=== PATIENT | male | born 1950 | race Caucasian/White ===

== ENCOUNTER 2025-08-09 11:44 | Inpatient (IN) | payer OTHER, SELFPAY ==
[2025-08-09 13:14] VITALS: BP 110/71; PULSE 81; RESP 18; TEMP 36.9; O2SAT 97
--- NOTE | 2025-08-09 13:31 | EDNOTE_ITS ---
ED Recheck Abnl Lab Rx-RME/HPI General Chief Complaint: Recheck/Abnormal Lab/Rx Stated Complaint: SENT BY [facility] FOR IRON INFUSION Time Seen by Provider: 08/09/25 11:48 Arrival date/time: 08/09/25 11:44 75-year-old male patient with significant history of anemia in the past, came in after patient was advised to go to the emergency room for a hemoglobin of 6.0. Patient went to [facility] for routine blood work, and later on yesterday was advised to go to emergency room right away for possible blood wilder sfusion. Patient is denying any blood in the stool or vomiting blood. Patient complaint includes easy fatigability, generalized weakness, dizziness with exertion. Denies any chest pain denies any abdominal pain currently not on any medication for anemia. Related Data Home Medications ?Medication ?Instructions ?Recorded ?Confirmed hydrocodone 10 mg-acetaminophen 10 tab PO Q6HR PRN Bubba n 05/06/24 05/06/24 325 mg tablet trazodone 50 mg tablet 150 mg PO HS sleep 05/06/24 05/06/24 triamterene 50 mg capsule 75 mg PO QDAY BLOOD PRESSURE 05/06/24 05/06/24 venlafaxine 75 mg tablet 75 mg PO QDAY 05/06/2405/06 Previous Rx's ?Medication ?Instructions ?Recorded ferrous sulfate 325 mg (65 mg 325 mg PO QDAY 30 days # 30 tabs 05/08/24 iron) tablet,delayed release Allergies Allergy/AdvReac Type Severity Reaction Status Date / Time Penicillins Allergy Intermediate Rash Verified 08/09/25 11:46 Review of Systems Review of Systems Narrative Review of Systems: Review of system reviewed and within normal limits except mentioned in HPI ED Exam Narrative Physical exam: VITAL SIGNS: Reviewed. GENERAL APPEARANCE: Alert and interactive, follows commands, no acute distress, HEAD AND FACE: Non-traumatic. ENT: PERRL, pale conjunctiva, eyelid no trauma, Mucous membrane moist. NECK: Supple, nontender, no nuchal rigidity. CHEST: No tenderness, no crepitus, no paradoxical movement, no retractions. LUNGS: Clear, well ventilated, symmetric, no rales, no wheezing, no ronchi, no stridor, good breath sounds bilaterally. HEART: Regular rate, regular rhythm, no murmur, no gallops. ABDOMEN: Soft, positive bowel sounds, nondistended, no guarding, nontender, no rebound, no masses, RECTAL: Deferred. GENITAL: Deferred. NEUROLOGICAL: Gross motor function intact sensory function intact, Appropriate for age. MUSCULOSKELETAL: low back nontender, full range of motion. EXTREMITIES: Nontender, full range of motion. SKIN: Color pale, dry, no rash, no lacerations, no abrasions, no contusions. LYMPHATICS: Deferred. Course Quality Measures none Orders Category Date Time Status Admit to Inpatient Status Routine Admission 08/09/25 22:10 Active Patient Condition Routine Admission 08/09/25 22:10 Ordered COVID-19 Screening Questionnaire NOW Care 08/09/25 21:14 Active COVID-19 Screening Questionnaire NOW Care 08/09/25 21:32 Completed Authorizer Q4H START 00 Care 08/09/25 21:26 Active Decision to Admit X1 Care 08/09/25 21:32 Active EKG (ED ONLY) *Do not use* NOW Care 08/09/25 22:06 Active IV [Insert IV] NOW Care 08/09/25 20:41 Active NPO NOW Care 08/09/25 22:12 Active Notify provider NEEDED Care 08/09/25 22:10 Active Occult Blood,Stool (Nursing) ONCE Care 08/09/25 13:31 Active Occult Blood,Stool (Nursing) ONCE Care 08/09/25 21:13 Active Post Transfusion H&H X1 Care 08/09/25 22:01 Active Sequential Compression Device QSHIFT Care 08/09/25 22:10 Active Transfuse,blood/blood products ONCE Care 08/09/25 13:31 Active Consult to Gastroenterology Stat Cons 08/09/25 21:09 Ordered Diet NPO (NOW) Diet 08/09/25 22:12 Active EKG (ED Only) Stat Exams 08/09/25 22:05 Draft CBC AM DRAW Lab 08/10/25 05:00 Ordered CBC AM DRAW Lab 08/11/25 05:00 Ordered CBC AM DRAW Lab 08/12/25 05:00 Ordered CBC AM DRAW Lab 08/13/25 05:00 Ordered CBC AM DRAW Lab 08/14/25 05:00 Ordered CBC Stat Lab 08/09/25 13:53 Completed Cocci Serology IgM with reflex to IgG [Cocci Serology, Lab 08/09/25 21:58 Ordered Unk History] Stat Comprehensive Metabolic Panel AM DRAW Lab 08/10/25 05:00 Ordered Comprehensive Metabolic Panel AM DRAW Lab 08/11/25 05:00 Ordered Comprehensive Metabolic Panel AM DRAW Lab 08/12/25 05:00 Ordered Comprehensive Metabolic Panel AM DRAW Lab 08/13/25 05:00 Ordered Comprehensive Metabolic Panel AM DRAW Lab 08/14/25 05:00 Ordered Comprehensive Metabolic Panel Stat Lab 08/09/25 13:53 Completed Magnesium AM DRAW Lab 08/10/25 05:00 Ordered Prothrombin Time with INR Stat Lab 08/09/25 14:29 Completed Red Blood Cells Stat Lab 08/09/25 13:53 Results Type and Screen Stat Lab 08/09/25 13:53 Results Urinalysis Stat Lab 08/09/25 13:47 Completed Acetaminophen Tab [Tylenol Tab] Med 08/09/25 22:10 Active 650 mg PO Q6H PRN Pantoprazole Inj [Protonix Inj] Med 08/10/25 09:00 Active 40 mg IVP BID Pantoprazole Inj [Protonix Inj] Med 08/09/25 21:09 Discontinued 80 mg IVP X1 ONE traZODone HCL [Desyrel] Med 08/09/25 22:13 Active 150 mg PO HS PRN Code Status Routine Oth 08/09/25 22:10 Ordered Oxygen Delivery PRN RT 08/09/25 22:10 Active Vital Signs Vital signs: Vital Signs Temperature 98.5 F 08/09/25 13:14 Pulse Rate 81 08/09/25 13:14 Respiratory Rate 18 08/09/25 13:14 Blood Pressure 110/71 08/09/25 13:14 Pulse Oximetry (%) 97 08/09/25 13:14 Oxygen Delivery Method Room Air 08/09/25 13:14 Recheck / Abnormal Lab / Rx MDM Narrative MDM Narrative:: 75-year-old male patient with significant history of anemia in the past, came in after patient was advised to go to the emergency room for a hemoglobin of 6.0. Patient went to [facility] for routine blood work, and later on yesterday was advised to go to emergency room right away for possible blood transfusion. Patient is denying any blood in the stool or vomiting blood. Patient complaint includes easy fatigability, generalized weakness, dizziness with exertion. Denies any chest pain denies any abdominal pain currently not on any medication for anemia. Rectal exam was done by me, and tested positive for occult blood. Patient's hemoglobin today was noted to be 6.2 hematocrit of 23.1. Platelet is normal. CMP came back with BUN of 24, creatinine 1.8 glucose 152 urinalysis no UTI. EKG showed normal sinus rhythm, ventricular rate of 73 bpm, no ST segment elevation depression noted. Patient received 2 units of packed RBC. Patient was also started on IV Protonix. I consulted Dr. Melendez, laborer operator, discussed the case, and will see the patient thank you Dr. Patient data External records reviewed:: None Clinical information provided by:: patient Social determinants that could affect healthcare access:: none Patient has the following chronic illnesses:: Hypertension How is presenting disease/condition affected by chronic disease/condition?: exacerbated by Evaluation data The following diagnostics were reviewed and interpreted by me:: lab results, radiology exam(s) and EKG tracing(s) Lab and/or radiology exams considered but not ordered:: None Interpretation Summary: See above Medications / Prescriptions Medications or Prescriptions considered but not ordered:: None Medication administrations:: Medication Administration History Acetaminophen (Acetaminophen 325 Mg Tablet) 650 mg PO Q6H PRN PRN Reason: Fever >100.4 Stop: 09/08/25 22:09 Pantoprazole Sodium (Pantoprazole Inj 40 Mg Vial) 40 mg IVP BID PATRICIO Stop: 09/09/25 08:59 Trazodone HCl (Trazodone Hcl 50 Mg Tablet) 150 mg PO HS PRN PRN Reason: INSOMNIA Stop: 09/09/25 20:59 Discontinued Medications Pantoprazole Sodium (Pantoprazole Inj 40 Mg Vial) 80 mg IVP X1 ONE Stop: 08/09/25 21:10 Last Admin: 08/09/25 21:16 Dose: 80 mg Documented By: BD See above Consultations Consultation(s) initiated? (list below): No Diagnosis Recheck Differential Diagnosis: other (Upper GI bleed, severe anemia, iron deficiency anemia) Most likely diagnosis given after review of the tests above:: Upper GI bleed, anemia Admission Indicated Admission indicated?: indicated Admission Request Was there a request for admission?: Yes Admission Attestation Admission request attestation: Discussed case with [Dr. Morales] from Hospitalist service regarding admission. Discussed patients ED course, exam findings, labs, and radiology results. The Hospitalist [agrees] to accept the patient for admission. Disposition Plan Disposition Plan: Admit Discharge Plan Plan Patient Disposition: Admit Acute Care w/in Hospital Problem List Clinical Impression: Anemia, Acute upper GI bleed
[2025-08-09 14:03] LABS: Collection Type, Urine Clean Catch
[2025-08-09 14:19] LABS: Basophils # (Auto) 0.1 Thou/mm3 (0.0-0.2); Basophils % (Auto) 1 % (0-2.5); Eosinophils # (Auto) 0.1 Thou/mm3 (0.0-0.5); Eosinophils % (Auto) 1 % (0-10); Hematocrit 23.1 % (41.0-53.0); Immature Granulocytes Auto 0.02 Thou/mm3 (0.00-0.00); Lymphocytes # (Auto) 2.3 Thou/mm3 (1.0-4.8); Lymphocytes % (Auto) 25 % (10-50); Mean Corpuscular HGB Conc 26.8 g/dl (31.0-37.0); Mean Corpuscular Hemoglobin 19.0 pg (25.0-35.0); Mean Corpuscular Volume 71 fL (80-100); Monocytes # (Auto) 1.1 Thou/mm3 (0.0-0.8); Monocytes % (Auto) 12 % (0-12); Neutrophils # (Auto) 5.4 Thou/mm3 (1.8-7.7); Neutrophils % (Auto) 60 % (37-80); Nucleated Red Blood Cell # 0.02 Thou/mm3 (0.00-0.00); Nucleated Red Blood Cell % 0 /100 WBC (0); Platelet Count 210 Thou/mm3 (140-440); RDW Standard Deviation 47.7 fL (35.1-43.9); Red Blood Count 3.26 Miln/mm3 (4.50-5.90); White Blood Count 9.0 Thou/mm3 (3.8-10.6)
[2025-08-09 14:26] LABS: Bilirubin,Urine Negative (Negative); Blood,Urine Negative (Negative); Clarity,Urine Clear (Clear/Hazy); Color,Urine Lt-Yellow (Lt Yel-Yel); Glucose, Urine Negative (Negative); Ketones,Urine Negative (Negative); Leukocyte Esterase,Urine Negative (Negative); Nitrite,Urine Negative (Negative); PH,Urine 5.5 (5.0-7.0); Protein,Urine Trace (Neg - Trace); RBC,Urine 1 /hpf (0-3); Specific Gravity,Urine 1.019 (1.001-1.035); Squamous Epithelial Cell,Urine 1 /hpf (0-5); Urobilinogen,Urine Negative mg/dL (0.0-1.0); WBC,Urine 5 /hpf (0-5)
[2025-08-09 14:29] LABS: Hemoglobin 6.2 g/dL (13.5-16.0)
[2025-08-09 14:31] LABS: Alanine Aminotransferase 11 U/L (10-49); Albumin, Serum 4.0 gm/dL (3.4-4.8); Albumin/Globulin Ratio 1.4 (1.2-2.2); Alkaline Phosphatase 77 U/L (46-116); Anion Gap 12 (7-16); Aspartate Amino Transferase 23 U/L (0-34); BUN/Creatinine Ratio 13 Ratio (12-20); Bilirubin,Total 0.4 mg/dL (0.3-1.2); Blood Urea Nitrogen 24 mg/dL (9-23); Calcium 9.4 mg/dL (8.3-10.6); Calcium (Corrected) 9.4 mg/dL (8.5-10.1); Carbon Dioxide 24.0 mMol/L (20.0-31.0); Chloride 106 mMol/L (98-107); Creatinine (Component) 1.8 mg/dL (0.6-1.3); Globulin 2.8 gm/dL (2.3-3.5); Glucose 152 mg/dL (74-106); Osmolality,Calculated 290 (275-295); Potassium 4.5 mMol/L (3.4-5.1); Sodium 142 mMol/L (136-145); Total Protein 6.8 gm/dL (5.7-8.2); eGFR 39 See Note
[2025-08-09 14:52] LABS: INR 1.0 (0.9-1.3); Prothrombin Time 10.9 Seconds (9.0-12.2)
[2025-08-09 20:31] VITALS: BP 130/86; PULSE 70; RESP 18; TEMP 36.9; O2SAT 99
[2025-08-09 21:06] VITALS: BP 149/63; PULSE 85; RESP 15; TEMP 37.2; O2SAT 100
[2025-08-09 21:25] VITALS: BP 141/69; PULSE 76; RESP 16; TEMP 36.9; O2SAT 100
[2025-08-09 21:27] VITALS: PULSE 78
[2025-08-09 21:40] VITALS: BP 135/87; PULSE 74; RESP 17; TEMP 37.2; O2SAT 100
--- NOTE | 2025-08-09 22:05 | EKG_ITS ---
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1950 Requested By: Jose Juan Pérez Order Number: [id number] Reading MD: Jose Juan Pérez Measurements Intervals Filion Rate: 73 P: 64 MO: 154 QRS: -2 QRSD: 146 T: -28 QT: 408 QTc: 451 Interpretive Statements SINUS RHYTHM WITH OCCASIONAL VENTRICULAR PREMATURE COMPLEXES WITH OCCASIONAL SUPRAVENTRICULAR PREMATURE COMPLEXES RIGHT BUNDLE BRANCH BLOCK [120+ ms QRS DURATION, UPRIGHT V1, 40+ ms S IN I/aVL/V4/V5/V6] MODERATE T-WAVE ABNORMALITY, CONSIDER LATERAL ISCHEMIA [-0.1+ mV T-WAVE IN I/aVL/V5/V6] WARNING: DATA QUALITY MAY AFFECT INTERPRETATION Compared to ECG 05/08/2024 05:31:10 Ventricular premature complex(es) now present T-wave abnormality still present Possible ischemia still present /store/S0/[id number]/ecg/[id number].pdf
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
--- NOTE | 2025-08-09 23:45 | ECHO_ITS ---
Patient Info Name: Alona Gifford Age: 75 years : 1950 Gender: Male Ht: 173 cm Wt: 91 kg BSA: 2.11 m2 BP: 127 / 84 mmHg HR: 99 bpm Exam Date: 08/11/2025 6:46 AM Admit Date: 08/09/2025 Site: [facility] Room Number: [id number] Patient Status: I Technical Quality: Poor Exam Type: CA echo doppler complete Compliance Quality Performance Analyst: Gabrielle Belcher Ordering Physician: Milan Morales Study Info Indications Bilateral lower extremity swelling, last echo was 05/05/2024 - Primary Location: S2SX Left Ventricular Outflow Tract Name Value Normal LVOT 2D LVOT Diameter 1.9 cm LVOT Doppler LVOT Peak Velocity 192 cm/s LVOT Mean Gradient 9 mmHg LVOT VTI 40 cm LVOT VTI/AV VTI Ratio 1.1 LVOT Stroke Volume 113 ml Pulmonic Valve Name Value Normal PV Doppler PV Peak Velocity 143 cm/s Mitral Valve Name Value Normal MV Doppler MV Mean Gradient 1 mmHg MV Decel [place] 216 cm/s2 MV PHT 103 ms MV Area (PHT) 2.1 cm2 4.0-5.0 MV Area (Cont Eq VTI) 2.9 cm2 MV Diastolic Function MV E Peak Velocity 77 cm/s MV A Peak Velocity 98 cm/s MV E/A 0.8 MV Annular TDI MV Septal e' Velocity 7.4 cm/s MV E/e' (Septal) 10.4 MV Lateral e' Velocity 10.1 cm/s MV E/e' (Lateral) 7.6 MV e' Average 8.75 cm/s MV E/e' (Average) 9.0 Tricuspid Valve Name Value Normal TV Regurgitation Doppler TR Peak Velocity 255 cm/s Estimated PAP/RSVP RA Pressure 3 mmHg <=5 PA Systolic Pressure 29 mmHg <36 RV Systolic Pressure 29 mmHg <36 Aortic Valve Name Value Normal AV 2D/MM AV Cusp Sep (MM) 1.2 cm AV Doppler AV Peak Velocity 227 cm/s AV Mean Gradient 10 mmHg AV VTI 37 cm AV Area (Cont Eq VTI) 3.0 cm2 >=3.0 AV Area (Cont Eq Joel) 2.4 cm2 AV DI (Joel) 0.85 AV Regurgitation 2D LVOT Area 2.8 cm2 Ventricles Name Value Normal LV Dimensions 2D/MM IVS Diastolic Thickness (2D) 1.0 cm 0.6-1.0 LVID Diastole (2D) 4.9 cm 4.2-5.8 LVIW Diastolic Thickness (2D) 1.1 cm 0.6-1.0 LVID Systole (2D) 3.0 cm 2.5-4.0 LVOT Diameter 1.9 cm LV Mass (2D Cubed) 188.09 g 88.00-224.00 LV Mass Index (2D Cubed) 89 g/m2 49-115 Relative Wall Thickness (2D) 0.45 <=0.42 IVS/LVIW Diastolic Thickness (2D) 0.91 0.00-1.50 LV Fractional Shortening/Ejection Fraction 2D/MM LV Fractional Shortening (2D) 39 % 25-43 LV EF (2D Teichholz) 69 % Atria Name Value Normal LA Dimensions LA Volume (4C A-L) 53 ml Left Ventricle Left ventricular chamber dimension is normal. Left ventricular systolic function is normal with visually estimated ejection fraction of 60-65%. There is concentric remodeling noted in the left ventricle. Left ventricular segmental wall motion is normal. There is indeterminate diastolic function in the left ventricle. Right Ventricle Right ventricular chamber dimension is mildly enlarged. Right ventricular systolic function is normal. Flattening of the ventricular septum in mid to late systole consistent with right ventricular volume overload. Left Atrium Left atrial chamber dimension is mildly enlarged. Right Atrium Right atrial chamber dimension is normal. Aortic Valve The aortic valve is trileaflet. There is mild aortic valve sclerosis. There is no aortic valve stenosis with a peak velocity of 227 cm/s, mean gradient of 10 mmHg, and aortic valve area of 3.0 cm2. There is no aortic valve regurgitation. Pulmonic Valve The pulmonic valve is normal. There is no pulmonic valve stenosis. There is no pulmonic regurgitation. Mitral Valve The mitral valve has thickened leaflets. There is no mitral valve stenosis. There is trace mitral valve regurgitation. Tricuspid Valve The tricuspid valve leaflets are normal. There is no tricuspid valve stenosis. There is mild tricuspid valve regurgitation. No pulmonary hypertension, estimated pulmonary arterial systolic pressure is 29 mmHg and systemic blood pressure of 127 mmHg in systole. Pericardium/Pleural The pericardium appears normal. There is no pericardial effusion. No pleural effusion visualized. Inferior Vena Cava Normal inferior vena cava with >50% collapse upon inspiration consistent with normal right atrial pressure, 3 mmHg. Aorta The aortic measurements are indexed to age and body surface area. The aortic root at the sinus of Valsalva is not well visualized. The prox ascending aorta is not well visualized. Summary 1. Left ventricle size is normal and systolic function is normal. Estimated ejection fraction is 60-65%. There is indeterminate diastolic function. 2. Right ventricle chamber size is mildly enlarged and systolic function is normal. Estimated RVSP is 29 mmHg. 3. There is mild aortic valve sclerosis with no stenosis and no regurgitation. trace MR and TR. 4. The left atrium is mildly enlarged. The right atrium is normal. 5. Normal IVC with estimated RA pressure 3 mmHg. Report Signatures Finalized by Bentley Oliva on 08/11/2025 12:52 PM
[2025-08-10] VITALS (92 sets, daily range): BP systolic 94–160; BP diastolic 51–102; PULSE 61–180; RESP 12–97; TEMP 36.2–37.2; O2SAT 78–100
--- NOTE | 2025-08-10 00:01 | XR_ITS ---
Examination: CT chest, without intravenous contrast. CT abdomen, without intravenous contrast. CT pelvis, without intravenous contrast. 2-D sagittal and coronal reconstructions. 3-D reconstructions. Date and time of exam: August 10, 2025, 0027, comparison CTA chest 05/05/2024 INDICATIONS: Gastrointestinal bleeding, back pain chest pain abdominal pain today, history pulmonary nodules CTDI vol (mgy) 10.71 DLP (MGycm) 791 Technique: Multiple CT images, 3.0 mm slice thickness, obtained chest, abdomen, pelvis, with the high-resolution 64 slice scanner.. Sagittal and coronal 2-D reconstructions are obtained. 3-D reconstructions Low dose protocols were performed. One or more of the following dose reduction techniques were used; automated exposure control, adjustment of the mA and/or KV according to patient size, use of iterative reconstruction technique. Findings: Fluid distended esophagus No thoracic aortic aneurysm dilatation Main pulmonary artery segment 4.4 cm Heavy calcification left anterior descending coronary artery 23 mm bilobed cavitary lesion right lower lobe Mild pneumonia left base Gastric sutures No visualized liver or splenic lesion Aortic calcification no aneurysmal dilatation No bowel obstruction Colonic diverticulosis No pericolonic inflammatory change Normal seminal vesicles Prostatomegaly transverse dimension 4.2 cm No bladder mass Severe osteopenia with diffuse significant lumbar degenerative disc disease Fat-containing 5 cm abdominal wall hernia defect Small fat-containing inguinal hernias IMPRESSION: Again noted cavitary lesion 23 mm cavitary lesion in the right lung, stable compared to the prior study, highest on the differential list infectious processes including active tuberculosis, pulmonary neoplasm not excluded Mild pneumonia left base Fluid distended esophagus, recommend standard fluoroscopically-guided esophagram follow-up Consider CTA study postcontrast or nuclear medicine gastrointestinal bleeding study follow-up given the clinical diagnosis of gastrointestinal bleeding
[2025-08-10] MEDS: HYDROmorphone INJ 2 MG/ML VIAL 1 MG IVP ×3 (00:15→22:49)
--- NOTE | 2025-08-10 00:29 | XR_ITS ---
Examination: Retroperitoneal ultrasound, complete Technique: Multiple high resolution grayscale images of the retroperitoneum obtained, including kidneys and bladder. Exam date and time: August 10, 2025, 0140 hours INDICATIONS: Acute renal insufficiency on laboratory examination today. FINDINGS: Right kidney 9.6 cm renal cortex 1.3 cm Left kidney 8.4 cm renal cortex 1.3 cm Moderate renal scar formation, no hydronephrosis No bladder mass or bladder calculi, bladder prevoid volume 393 cc Prostate 4.5 x 4.5 x 3.6 cm no prostate nodules IMPRESSION: Small kidneys with bilateral renal cortical thinning Moderate bilateral renal scar formation No hydronephrosis
[2025-08-10] MEDS: RINGERS LACTATED 1000 ML 1,000 ML 100 ML IV (00:45)
[2025-08-10 00:53] LABS: Lactate (Lactic Acid) 1.1 mMol/L (0.4-2.0)
--- NOTE | 2025-08-10 01:38 | PRELIM_ITS ---
CT scan of the chest, abdomen and pelvis without intravenous contrast (axial sections with sagittal and coronal reformats) August 10, 2025 at 0027 hours Clinical History: GI bleed and pulmonary nodules. Comparison: None available at the time of this report. Findings: This noncontrast study is nondiagnostic for evaluation of GI bleed. Right lower lobe lung nodule with cavitation measuring 2.5 cm. Small consolidation in the left lower lobe. There is no pleural effusion or pneumothorax. The aorta is within normal limits for on this noncontrast study. No evidence of mediastinal mass or lymphadenopathy. There is no pericardial effusion. The liver, gallbladder, spleen, pancreas, adrenals and kidneys are unremarkable on this noncontrast study. No evidence of bowel obstruction. No evidence of appendicitis. The urinary bladder is unremarkable. There is no free fluid or free air. Degenerative changes of the imaged portions of the spine. Chronic multilevel disc disease. No acute fractures. Vascular calcifications. Diverticulosis of the colon. Fecal loading. Status post gastric surgery. Patulous esophagus with air-fluid level within. Coronary arteries calcifications. Transverse colon containing anterior abdominal hernia without evidence of inflammation or obstruction. Status post anterior abdominal hernia repair with mesh. Impression: 1. This noncontrast study is nondiagnostic for evaluation of GI bleed. 2. Cavitated lesion in the right lower lobe, consider tuberculosis and cancer in the differential diagnosis. 3. Patulous esophagus with air-fluid level within. Correlation with endoscopy should be considered. 4. Coronary arteries calcifications. If acute myocardial infarction is clinically suspected consider correlation with troponin. 5. Small consolidation in the left lower lobe, scarring versus atelectasis versus small focus of pneumonia. Discussion Details: Results verbally communicated to Yue Nair RN at 04:37 AM ET 08/10/2025. A call back number was provided for a Physician to Physician call communication. Report Electronically Signed By: Omega Greene 08/10/2025 1:38:49 AM [EST]
--- NOTE | 2025-08-10 02:00 | PC.NURSE ---
DR NELSON MADE AWARE OF CT CHEST/ABD/PELVIS WO RESULTS FROM [facility]
[2025-08-10 03:57] LABS: Hematocrit 24.2 % (41.0-53.0)
--- NOTE | 2025-08-10 03:57 | PRELIM_ITS ---
Renal/Retroperitoneal ultrasound with Doppler. August 10, 2025 at 0140 hours Clinical history: Acute kidney injury. Technique: Duplex scan of bilateral kidneys was performed utilizing 2D grayscale imaging. Comparison: CT of August 10, 2025. Findings: Right: The right kidney measures 9.6 cm. There is no hydronephrosis or renal calculus. Parenchymal renal scarring. The corticomedullary differentiation is maintained. Left: The left kidney measures 8.4 cm. Parenchymal renal scarring. There is no hydronephrosis or renal calculus. The corticomedullary differentiation is maintained. The urinary bladder is unremarkable. Enlarged prostate. No abnormalities by Doppler. Impression: 1. Bilateral parenchymal scarring in the kidneys. 2. No hydronephrosis. 3. Enlarged prostate. Report Electronically Signed By: Omega Greene 08/10/2025 3:55:53 AM [EST]
[2025-08-10 04:06] LABS: Hemoglobin 7.0 g/dL (13.5-16.0)
[2025-08-10 04:16] LABS: Alanine Aminotransferase 8 U/L (10-49); Albumin, Serum 3.2 gm/dL (3.4-4.8); Albumin/Globulin Ratio 1.2 (1.2-2.2); Alkaline Phosphatase 68 U/L (46-116); Anion Gap 10 (7-16); Aspartate Amino Transferase 18 U/L (0-34); BUN/Creatinine Ratio 14 Ratio (12-20); Bilirubin,Total 0.8 mg/dL (0.3-1.2); Blood Urea Nitrogen 22 mg/dL (9-23); Calcium 9.0 mg/dL (8.3-10.6); Calcium (Corrected) 9.6 mg/dL (8.5-10.1); Carbon Dioxide 27.5 mMol/L (20.0-31.0); Chloride 108 mMol/L (98-107); Creatinine (Component) 1.6 mg/dL (0.6-1.3); Globulin 2.6 gm/dL (2.3-3.5); Glucose 86 mg/dL (74-106); Magnesium 1.7 mg/dL (1.6-2.6); Osmolality,Calculated 291 (275-295); Potassium 4.0 mMol/L (3.4-5.1); Sodium 145 mMol/L (136-145); Total Protein 5.8 gm/dL (5.7-8.2); eGFR 45 See Note
[2025-08-10 04:21] LABS: Iron 54 mcg/dL (65-175); Percent Iron Saturation 17 % (20-55); Total Iron Binding Capacity 311 mcg/dL (250-425); Unsaturated Iron Binding 257 (225-295)
[2025-08-10] MEDS: FLUCONAZOLE/NS 400 MG IVPB 400 MG/200 ML BAG 100 MG IV (04:21)
[2025-08-10 04:31] LABS: Folate > 24.00 ng/mL (>5.38); Vitamin B12 902 pg/mL (211-911)
[2025-08-10 06:39] LABS: Basophils # (Auto) 0.1 Thou/mm3 (0.0-0.2); Basophils % (Auto) 1 % (0-2.5); Eosinophils # (Auto) 0.4 Thou/mm3 (0.0-0.5); Eosinophils % (Auto) 5 % (0-10); Hematocrit 23.8 % (41.0-53.0); Immature Granulocytes Auto 0.01 Thou/mm3 (0.00-0.00); Lymphocytes # (Auto) 1.8 Thou/mm3 (1.0-4.8); Lymphocytes % (Auto) 28 % (10-50); Mean Corpuscular HGB Conc 29.0 g/dl (31.0-37.0); Mean Corpuscular Hemoglobin 21.4 pg (25.0-35.0); Mean Corpuscular Volume 74 fL (80-100); Monocytes # (Auto) 1.0 Thou/mm3 (0.0-0.8); Monocytes % (Auto) 16 % (0-12); Neutrophils # (Auto) 3.3 Thou/mm3 (1.8-7.7); Neutrophils % (Auto) 50 % (37-80); Nucleated Red Blood Cell # 0.02 Thou/mm3 (0.00-0.00); Nucleated Red Blood Cell % 0 /100 WBC (0); Platelet Count 316 Thou/mm3 (140-440); RDW Standard Deviation 52.8 fL (35.1-43.9); Red Blood Count 3.22 Miln/mm3 (4.50-5.90); White Blood Count 6.6 Thou/mm3 (3.8-10.6)
[2025-08-10 06:40] LABS: Hemoglobin 6.9 g/dL (13.5-16.0)
--- NOTE | 2025-08-10 07:22 | PC.NURSE ---
Upon assumption of care pt resting on stretcher, vss, denies any pain or discomfort. Pt in agreement w/POC.
[2025-08-10 08:36] LABS: OBS Card Expiration Date 0224; OBS Card Lot # 0124; OBS Developer Expiration Date *Enter Exp Date*; OBS Developer Lot # *Enter Lot Nbr*; OBS Performed By DIAZB; OBS QC OK? Yes; Occult Blood, Stool Positive (Negative)
[2025-08-10] MEDS: ACETAMINOPHEN 325 MG TABLET 650 MG PO (09:43)
[2025-08-10] MEDS: FUROSEMIDE INJ 10 MG/ML VIAL 2 ML 40 MG IVP (12:29)
--- NOTE | 2025-08-10 13:37 | ESPR_ITS ---
Documentation for date of: 08/10/25 Subjective Subjective Interval history: Patient seen and examined at bedside this morning. He reports feeling better compared to admission. Denies dizziness, lightheadedness, chest pain, shortness of breath, palpitations, nausea, vomiting, hematemesis, melena, or hematochezia. His only complaint is chronic back pain, which he states has been present for a long time and is unchanged from baseline. He is aware that his hemoglobin remains low this morning and understands the plan for additional blood transfusion today. No other complaints at this time. Exam Vital Signs Temp Pulse Resp BP Pulse Ox O2 Del Method 97.8 F 61 16 142/66 H 100 Room Air 08/10/25 12:17 08/10/25 12:29 08/10/25 12:00 08/10/25 12:08/10/25 12:17 08/10/25 12:00 Narrative Exam General: Patient alert, no acute distress, reports improvement in overall status. Cardiac: Regular rate and rhythm, normal S1, S2, no murmurs. Pulmonary: Clear lungs, wheezing on auscultation. Abdomen: Mild hernia noted, distended, positive bowel sounds, no guarding or rebound tenderness. Extremities: Bilateral 1+ pitting edema, pulses 2+ bilaterally. Skin: Warm, dry, no rashes or ecchymoses. Objective Labs 08/10/25 13:20 08/10/25 03:49 Labs: Laboratory Results - last 24 hr 08/09/25 08/09/25 08/09/25 13:47 13:53 14:29 WBC 9.0 RBC 3.26 L Hgb 6.2 L* Hct 23.1 L MCV 71 L MCH 19.0 L MCHC 26.8 L RDW Std Deviation 47.7 H Plt Count 210 Neut % (Auto) 60 Lymph % (Auto) 25 [place] % (Auto) 12 Eos % (Auto) 1 Baso % (Auto) 1 Neut # (Auto) 5.4 Lymph # (Auto) 2.3 [place] # (Auto) 1.1 H Eos # (Auto) 0.1 Baso # (Auto) 0.1 Immature Gran # (Auto) 0.02 H Absolute Nucleated RBC 0.02 H Immature Gran % 0 Nucleated RBC % 0 PT 10.9 INR 1.0 Sodium 142 Potassium 4.5 Chloride 106 Carbon Dioxide 24.0 Anion Gap 12 BUN 24 H Creatinine 1.8 H Estim Creat Clear Calc Not Performed. eGFR 39 L BUN/Creatinine Ratio 13 Glucose 152 H Calculated Osmolality 290 Lactic Acid Calcium 9.4 Corrected Calcium 9.4 Magnesium Iron TIBC Iron Saturation Unsat Iron Binding Total Bilirubin 0.4 AST 23 ALT 11 Alkaline Phosphatase 77 Total Protein 6.8 Albumin 4.0 Globulin 2.8 Albumin/Globulin Ratio 1.4 Vitamin B12 Folate Ur Collection Type Clean Catch Urine Color Lt-Yellow Urine Clarity Clear Urine pH 5.5 Ur Specific [place] 1.019 Urine Protein Trace Urine Glucose (UA) Negative Urine Ketones Negative Urine Blood Negative Urine Nitrite Negative Urine Bilirubin Negative Urine Urobilinogen (Auto) Negative Ur Leukocyte Esterase Negative Urine RBC 1 Urine WBC 5 Ur Squamous Epith Cells 1 Urine Bacteria None Stool Occult Blood Blood Type O Positive Antibody Screen NEGATIVE Crossmatch See Detail Blood Bank Wristband ID Yes 08/10/25 08/10/25 08/10/25 00:47 03:49 06:20 WBC 6.6 RBC 3.22 L Hgb 7.0 L 6.9 L* Hct 24.2 L 23.8 L MCV 74 L MCH 21.4 L MCHC 29.0 L RDW Std Deviation 52.8 H Plt Count 316 D Neut % (Auto) 50 Lymph % (Auto) 28 [place] % (Auto) 16 H Eos % (Auto) 5 Baso % (Auto) 1 Neut # (Auto) 3.3 Lymph # (Auto) 1.8 [place] # (Auto) 1.0 H Eos # (Auto) 0.4 Baso # (Auto) 0.1 Immature Gran # (Auto) 0.01 H Absolute Nucleated RBC 0.02 H Immature Gran % 0 Nucleated RBC % 0 PT INR Sodium 145 Potassium 4.0 D Chloride 108 H Carbon Dioxide 27.5 Anion Gap 10 BUN 22 Creatinine 1.6 H Estim Creat Clear Calc Not Performed. eGFR 45 L BUN/Creatinine Ratio 14 Glucose 86 D Calculated Osmolality 291 Lactic Acid 1.1 Calcium 9.0 Corrected Calcium 9.6 Magnesium 1.7 Iron 54 L TIBC 311 Iron Saturation 17 L Unsat Iron Binding 257 Total Bilirubin 0.8 AST 18 ALT 8 L Alkaline Phosphatase 68 Total Protein 5.8 Albumin 3.2 L D Globulin 2.6 Albumin/Globulin Ratio 1.2 Vitamin B12 902 Folate > 24.00 Ur Collection Type Urine Color Urine Clarity Urine pH Ur Specific [place] Urine Protein Urine Glucose (UA) Urine Ketones Urine Blood Urine Nitrite Urine Bilirubin Urine Urobilinogen (Auto) Ur Leukocyte Esterase Urine RBC Urine WBC Ur Squamous Epith Cells Urine Bacteria Stool Occult Blood Blood Type Antibody Screen Crossmatch Blood Bank Wristband ID 08/10/25 06:38 WBC RBC Hgb Hct MCV MCH MCHC RDW Std Deviation Plt Count Neut % (Auto) Lymph % (Auto) [place] % (Auto) Eos % (Auto) Baso % (Auto) Neut # (Auto) Lymph # (Auto) [place] # (Auto) Eos # (Auto) Baso # (Auto) Immature Gran # (Auto) Absolute Nucleated RBC Immature Gran % Nucleated RBC % PT INR Sodium Potassium Chloride Carbon Dioxide Anion Gap BUN Creatinine Estim Creat Clear Calc eGFR BUN/Creatinine Ratio Glucose Calculated Osmolality Lactic Acid Calcium Corrected Calcium Magnesium Iron TIBC Iron Saturation Unsat Iron Binding Total Bilirubin AST ALT Alkaline Phosphatase Total Protein Albumin Globulin Albumin/Globulin Ratio Vitamin B12 Folate Ur Collection Type Urine Color Urine Clarity Urine pH Ur Specific [place] Urine Protein Urine Glucose (UA) Urine Ketones Urine Blood Urine Nitrite Urine Bilirubin Urine Urobilinogen (Auto) Ur Leukocyte Esterase Urine RBC Urine WBC Ur Squamous Epith Cells Urine Bacteria Stool Occult Blood Positive A Blood Type Antibody Screen Crossmatch Blood Bank Wristband ID Quality Measures Quality Measures VTE prophylaxis Advance care planning discussed with:: patient Assessment & Plan Assessment Current Active Medications: Generic Name Dose Route Start Last Admin Trade Name Freq PRN Reason Stop Dose Admin Acetaminophen 650 mg 08/10/25 00:03 Acetaminophen 325 Mg Tablet PO 09/08/25 22:09 Q6H PRN Fever >100.4 or Pain Scale 1-3 Hydromorphone HCl 1 mg 08/10/25 06:00 08/10/25 06:22 Hydromorphone Inj 2 Mg/Ml Vial IVP 08/15/25 05:59 1 mg Q6HR PRN Administration PAIN SCALE 4-10(Mod-Sev Fluconazole 400 mg in 200 mls @ 100 mls/hr 08/11/25 09:00 Diflucan/Ns Ivpb IV 08/18/25 08:59 QDAY PATRICIO Ondansetron HCl 4 mg 08/09/25 23:51 Ondansetron Inj 2 Mg/Ml Inj 2 Ml IVP 09/08/25 23:50 Q8HR PRN NAUSEA OR VOMITING Protocol Pantoprazole Sodium 40 mg 08/10/25 09:00 08/10/25 09:24 Pantoprazole Inj 40 Mg Vial IVP 09/09/25 08:59 40 mg BID PATRICIO Administration Trazodone HCl 150 mg 08/09/25 22:13 Trazodone Hcl 50 Mg Tablet PO 09/09/25 20:59 HS PRN INSOMNIA Plan 75-year-old male admitted for severe symptomatic anemia due to suspected upper GI bleed, currently hemodynamically stable but with persistently low hemoglobin requiring ongoing transfusion; FRANKLYN improving; and multiple incidental imaging findings. # Acute Upper GI Bleed Severe anemia with FOBT positive, microcytosis, and reflux symptoms strongly suggests occult upper GI bleeding. Absence of hematemesis or melena does not exclude bleeding. Given history of GERD, prior gastric stapling, and CT findings of abnormal esophagus and gastric thickening Likely differentials include peptic ulcer disease, erosive esophagitis, gastritis, or malignancy. NSAID use appears minimal. Patient remains hemodynamically stable but transfusion-dependent. Plan: * Transfuse 1 unit PRBC today (Hgb 6.9), goal >7 * Follow up on post H&H * Pantoprazole 40 mg IV BID * NPO * Avoid NSAIDs, aspirin, anticoagulation * GI consulted pending recs # Acute on Chronic Microcytic Anemia # Iron Deficiency anemia Chronic iron deficiency (MCV 71, iron sat 17%) worsened by acute blood loss. Normal B12/folate excludes megaloblastic causes. Plan: * Continue transfusions as needed * Hold iron during active bleeding * Resume iron supplementation after hemostasis # Acute Kidney Injury, Improving FRANKLYN likely prerenal from decreased intake, vomiting, and anemia-related hypoperfusion. Improvement in creatinine (1.8 -> 1.6). Renal ultrasound shows chronic parenchymal disease, not obstruction. Plan: * Avoid nephrotoxins * Gentle hydration as tolerated * Daily BMP * Monitor urine output # Possible Congestive Heart Failure # Chronic Lower Extremity Edema Patient on triamterene chronically, raising concern for underlying CHF or volume-related edema. Lower-extremity edema present. Prior EF preserved, but CHF status unclear. Plan: * Lasix x1 given * Echocardiogram ordered * Monitor volume status closely during transfusions # History of Coccidioidomycosis Known prior history of cocci, not on treatment, with persistent cavitary lung lesion. Plan: * Started fluconazole * Cocci serologies pending * Monitor LFTs * Follow-up outpatient unless clinical change # GERD # Abnormal Esophagus distenstion on CT CT showing fluid-distended esophagus suggests possible stricture, dysmotility, or chronic esophagitis, which could also contribute to chronic blood loss and reflux symptoms. Plan: * Continue IV PPI * Likely outpatient unless GI recommends inpatient workup # Chronic Back Pain Longstanding pain without red-flag symptoms. NSAIDs contraindicated given active GI bleed. Plan: * Acetaminophen PRN * Avoid NSAIDs * Opioids only if severe and necessary # Depression / Insomnia Chronic, stable psychiatric conditions without acute decompensation. Plan: * Continue trazodone nightly * Restart venlafaxine once med rec complete Hospital Maintenance: DVT ppx: SCDs only GI ppx: Pantoprazole IV BID Diet: NPO Code status: DNR/DNI Disposition: Telemetry, pending GI intervention and Hgb stabilization ----- Plan discussed with attending physician Dr. Carri Ford MD PGY-1 Internal Medicine Attending Provider Attestation/Addendum I, Ruthann Christina DO, attest that I was physically present for the dyer portions of the service and evaluated the patient with the resident and I reviewed and discussed the case with the resident and agree with the resident's findings and plans of care as documented above Patient seen eval this a.m. Patient states that he has been very fatigued for the past few weeks. He also endorses having coffee-ground emesis at home that prompted him to come to the ED. Patient was noted to have anemia on presentation with hemoglobin of 6.2. Patient has been transfused 2 units PRBCs and hemoglobin increased to 7.0. Patient endorses having acid reflux and has some mild epigastric pain. Patient has had a sleeve gastrectomy in the past for weight loss and states that he has been having GI symptoms since. He has had a colonoscopy recently and was found to have a polyp. He has had endoscopy in the past, but states that it was unremarkable. Denies any history of hiatal hernia. However, upon my review of CT abdomen pelvis. Patient is noted to have a fluid distended esophagus and possible hiatal hernia. This is the likely cause of his acid reflux. He remains NPO at this time due to scheduled EGD. Patient is noted to have a caviatry lesion on chest CT that was previously biopsied and found to have fungal elements and TB ruled out. Patient states he uses triamterene at home due to b/l ankle swelling. Will monitor volume status. Will transfuse another unit of PRBCs due to repeat Hgb of 6.9. Will f/u with post transfusion H/H. Patient noted to have a reducible umbilical hernia. Will continue to trend H/H. No further episodes of hematemesis. Will f/u with EGD results.
[2025-08-10 13:41] LABS: Hematocrit 27.3 % (41.0-53.0)
[2025-08-10 13:52] LABS: Hemoglobin 8.0 g/dL (13.5-16.0)
[2025-08-10 15:42] LABS: Cocci Serology, IgM Negative (Negative)
--- NOTE | 2025-08-10 19:36 | SUR.PHASEI ---
192 patient is sleepy and arousable, breathing unlabored, s/p EGD under IV sedation, report received from Annel HART
--- NOTE | 2025-08-10 20:00 | SUR.PHASEI ---
1958 patient is awake, alert, breathing unlabored, report given to Opal RN, patient transferred back to room 251
[2025-08-11] VITALS (21 sets, daily range): BP systolic 70–127; BP diastolic 44–84; PULSE 64–108; RESP 16–94; TEMP 36.4–37.7; O2SAT 92–97; BMI 34.3
--- NOTE | 2025-08-11 05:35 | EKG_ITS ---
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
[2025-08-11 06:23] LABS: Basophils # (Auto) 0.1 Thou/mm3 (0.0-0.2); Basophils % (Auto) 1 % (0-2.5); Eosinophils # (Auto) 0.2 Thou/mm3 (0.0-0.5); Eosinophils % (Auto) 3 % (0-10); Hematocrit 28.1 % (41.0-53.0); Immature Granulocytes Auto 0.01 Thou/mm3 (0.00-0.00); Lymphocytes # (Auto) 1.8 Thou/mm3 (1.0-4.8); Lymphocytes % (Auto) 28 % (10-50); Mean Corpuscular HGB Conc 29.9 g/dl (31.0-37.0); Mean Corpuscular Hemoglobin 22.2 pg (25.0-35.0); Mean Corpuscular Volume 74 fL (80-100); Monocytes # (Auto) 0.7 Thou/mm3 (0.0-0.8); Monocytes % (Auto) 12 % (0-12); Neutrophils # (Auto) 3.5 Thou/mm3 (1.8-7.7); Neutrophils % (Auto) 56 % (37-80); Nucleated Red Blood Cell # 0.00 Thou/mm3 (0.00-0.00); Nucleated Red Blood Cell % 0 /100 WBC (0); Platelet Count 307 Thou/mm3 (140-440); RDW Standard Deviation 52.6 fL (35.1-43.9); Red Blood Count 3.79 Miln/mm3 (4.50-5.90); White Blood Count 6.3 Thou/mm3 (3.8-10.6)
[2025-08-11 06:32] LABS: Hemoglobin 8.4 g/dL (13.5-16.0)
[2025-08-11] MEDS: HYDROmorphone INJ 2 MG/ML VIAL 1 MG IVP (06:52)
--- NOTE | 2025-08-11 06:57 | XR_ITS ---
EXAMINATION: AP chest single view TECHNIQUE: AP portable upright chest single view Date and time: August 11, 2025, 0845 hours, comparison 05/09/2024 INDICATIONS: Shortness of breath today. FINDINGS: Mild enlargement left ventricle Extensive bilateral lung opacity Significant vascular congestion Severe osteopenia IMPRESSION: Extensive bilateral pneumonia, suspicious for mild associated heart failure
[2025-08-11 06:58] LABS: Alanine Aminotransferase 11 U/L (10-49); Albumin, Serum 3.1 gm/dL (3.4-4.8); Albumin/Globulin Ratio 1.2 (1.2-2.2); Alkaline Phosphatase 69 U/L (46-116); Anion Gap 13 (7-16); Aspartate Amino Transferase 18 U/L (0-34); BUN/Creatinine Ratio 13 Ratio (12-20); Bilirubin,Total 0.6 mg/dL (0.3-1.2); Blood Urea Nitrogen 19 mg/dL (9-23); Calcium 9.0 mg/dL (8.3-10.6); Calcium (Corrected) 9.7 mg/dL (8.5-10.1); Carbon Dioxide 28.3 mMol/L (20.0-31.0); Chloride 106 mMol/L (98-107); Creatinine (Component) 1.5 mg/dL (0.6-1.3); Estimated Creatinine Clearance 43.2 mL/min (>60); Globulin 2.6 gm/dL (2.3-3.5); Glucose 73 mg/dL (74-106); Magnesium 1.6 mg/dL (1.6-2.6); Osmolality,Calculated 293 (275-295); Phosphorous 4.1 mg/dL (2.4-5.1); Potassium 4.5 mMol/L (3.4-5.1); Sodium 147 mMol/L (136-145); Total Protein 5.7 gm/dL (5.7-8.2); eGFR 48 See Note
[2025-08-11] MEDS: FLUCONAZOLE/NS 400 MG IVPB 400 MG/200 ML BAG 100 MG IV (08:13)
[2025-08-11] MEDS: MAGNESIUM OXIDE 400 MG TABLET PO (08:50)
[2025-08-11] MEDS: Magnesium Sulfate 2 GM Ivpb 2 GM/50 ML BAG IV (08:50)
--- NOTE | 2025-08-11 10:12 | ESPR_ITS ---
<Statement entered by Stephen Caballero MD - 08/16/25 08:34> I reviewed above note and agree with findings and plans. I have also personally examined the patient with medicine team and went over assessment and plan with medical team including internet marketing manager and resident physician. <Statement entered by Juno Dodd MD - 08/13/25 12:02> I discussed with and supervised the internet marketing manager physician involved in the care of this patient. Patient assessment and plan was discussed with entire medicine team, including my attending. I agree with the assessment and plan as documented by internet marketing manager doctor. Patient care was discussed with my attending physician Dr. Federico Dodd, PGY-3 Documentation for date of: 08/11/25 Subjective Subjective Interval history: Patient seen and examined this morning. He reports that he woke up feeling short of breath earlier today and was started on supplemental oxygen; symptoms have since improved, and he is currently on 4 L NC saturating at 94%. He denies chest pain, palpitations, dizziness, nausea, vomiting, hematemesis, melena, or hematochezia. He is tolerating liquids without difficulty and denies regurgitation or dysphagia. No abdominal pain. Chronic back pain unchanged. Lower extremity swelling is improved. Denies fever, chills, or cough. He reports a history of gastric stapling approximately 25 years ago in [place]. No new complaints at this time. When rounding again on patient, patient MAP was low so was given 250cc bolus and midodrine 10 mg with improvement. Patient was awake at the time with no symptoms. Though appeared more fatigued than usual. Exam Vital Signs Temp Pulse Resp BP Pulse Ox O2 Del Method O2 Flow Rate 98.1 F 105 H 27 H 110/67 95 Room Air 5 08/11/25 08:05 08/11/25 08:05 08/11/25 08:05 08/11/25 08:05 08/11/25 08:05 08/11/25 04:00 08/11/25 06:24 Narrative Exam General: Patient alert, no acute distress, reports improvement in overall status. Cardiac: Regular rate and rhythm, normal S1, S2, no murmurs. Pulmonary: Clear lungs, wheezing on auscultation. Abdomen: Mild hernia noted, distended, positive bowel sounds, no guarding or rebound tenderness. Extremities: Bilateral 1+ pitting edema, pulses 2+ bilaterally. Skin: Warm, dry, no rashes or ecchymoses. Objective Labs 08/11/25 12:50 08/11/25 04:30 Labs: Laboratory Results - last 24 hr 08/09/25 08/10/25 08/10/25 13:53 06:20 13:20 WBC RBC Hgb 8.0 L Hct 27.3 L MCV MCH MCHC RDW Std Deviation Plt Count Neut % (Auto) Lymph % (Auto) [place] % (Auto) Eos % (Auto) Baso % (Auto) Neut # (Auto) Lymph # (Auto) [place] # (Auto) Eos # (Auto) Baso # (Auto) Immature Gran # (Auto) Absolute Nucleated RBC Immature Gran % Nucleated RBC % Sodium Potassium Chloride Carbon Dioxide Anion Gap BUN Creatinine Estim Creat Clear Calc eGFR BUN/Creatinine Ratio Glucose Calculated Osmolality Calcium Corrected Calcium Phosphorus Magnesium Total Bilirubin AST ALT Alkaline Phosphatase Total Protein Albumin Globulin Albumin/Globulin Ratio Coccidioides IgM Ab Negative Blood Type O Positive Antibody Screen NEGATIVE Crossmatch See Detail Blood Bank Wristband ID Yes 08/11/25 04:30 WBC 6.3 RBC 3.79 L Hgb 8.4 L Hct 28.1 L MCV 74 L MCH 22.2 L MCHC 29.9 L RDW Std Deviation 52.6 H Plt Count 307 Neut % (Auto) 56 Lymph % (Auto) 28 [place] % (Auto) 12 Eos % (Auto) 3 Baso % (Auto) 1 Neut # (Auto) 3.5 Lymph # (Auto) 1.8 [place] # (Auto) 0.7 Eos # (Auto) 0.2 Baso # (Auto) 0.1 Immature Gran # (Auto) 0.01 H Absolute Nucleated RBC 0.00 Immature Gran % 0 Nucleated RBC % 0 Sodium 147 H Potassium 4.5 D Chloride 106 Carbon Dioxide 28.3 Anion Gap 13 BUN 19 Creatinine 1.5 H Estim Creat Clear Calc 43.2 L eGFR 48 L BUN/Creatinine Ratio 13 Glucose 73 L Calculated Osmolality 293 Calcium 9.0 Corrected Calcium 9.7 Phosphorus 4.1 Magnesium 1.6 Total Bilirubin 0.6 AST 18 ALT 11 Alkaline Phosphatase 69 Total Protein 5.7 Albumin 3.1 L Globulin 2.6 Albumin/Globulin Ratio 1.2 Coccidioides IgM Ab Blood Type Antibody Screen Crossmatch Blood Bank Wristband ID Quality Measures Quality Measures VTE prophylaxis Advance care planning discussed with:: patient Assessment & Plan Assessment Current Active Medications: Generic Name Dose Route Start Last Admin Trade Name Freq PRN Reason Stop Dose Admin Acetaminophen 650 mg 08/10/25 00:03 Acetaminophen 325 Mg Tablet PO 09/08/25 22:09 Q6H PRN Fever >100.4 or Pain Scale 1-3 Hydromorphone HCl 1 mg 08/10/25 06:00 08/11/25 06:52 Hydromorphone Inj 2 Mg/Ml Vial IVP 08/15/25 05:59 1 mg Q6HR PRN Administration PAIN SCALE 4-10(Mod-Sev Fluconazole 400 mg in 200 mls @ 100 mls/hr 08/11/25 09:00 08/11/25 08:13 Diflucan/Ns Ivpb IV 08/18/25 08:59 100 mls/hr QDAY PATRICIO Administration Ondansetron HCl 4 mg 08/09/25 23:51 Ondansetron Inj 2 Mg/Ml Inj 2 Ml IVP 09/08/25 23:50 Q8HR PRN NAUSEA OR VOMITING Protocol Pantoprazole Sodium 40 mg 08/10/25 09:00 08/11/25 08:13 Pantoprazole Inj 40 Mg Vial IVP 09/09/25 08:59 40 mg BID PATRICIO Administration Trazodone HCl 150 mg 08/09/25 22:13 08/10/25 22:50 Trazodone Hcl 50 Mg Tablet PO 09/09/25 20:59 150 mg HS PRN Administration INSOMNIA Plan 75-year-old male admitted for severe symptomatic anemia due to suspected upper GI bleed, currently hemodynamically stable but with persistently low hemoglobin requiring ongoing transfusion; FRANKLYN improving; and multiple incidental imaging findings. # Acute Hypoxic Respiratory Failure due # Suspected Aspiration Pneumonia vs TRALI vs TACO New oxygen requirement this morning following recent emesis history and EGD, with CXR showing extensive bilateral infiltrates. Clinical picture concerning for aspiration pneumonia. Differential includes volume overload from transfusions vs aspiration pneumonia; however, given radiographic findings and aspiration risk, empiric antibiotics initiated. Plan: * Start Levofloxacin 750 mg IV daily * Start Metronidazole 500 mg IV q8h * Supplemental O2, wean as tolerated * Monitor respiratory status and oxygen requirements * Trend WBC * Repeat CXR if clinical worsening # Hypotension Transient hypotension with MAP 58 during rounds. Patient was awake and asymptomatic but appeared more fatigued. Likely multifactorial (recent transfusions, infection, relative volume depletion). Lactic acid 2.1. Plan: * Gave 250 cc IV fluid bolus with improvement * Administered midodrine 10 mg PO x1 * Continue close BP monitoring * Maintain MAP >65 * Avoid aggressive fluids * Reassess need for for more midodrine if recurrent hypotension # Acute Upper GI Bleed Severe anemia with FOBT positive, microcytosis, and reflux symptoms strongly suggests occult upper GI bleeding. Absence of hematemesis or melena does not exclude bleeding. Given history of GERD, prior gastric stapling, and CT findings of abnormal esophagus and gastric thickening Likely differentials include peptic ulcer disease, erosive esophagitis, gastritis, or malignancy. NSAID use appears minimal. Patient remains hemodynamically stable but transfusion-dependent. EGD on 08/10 showed esophageal ulcers and gastritis, likely source of bleeding. No further hematemesis or melena. Hgb 8.7 this morning stable, no transfusions today. Plan: * Trend CBC daily * Continue pantoprazole IV BID * Avoid NSAIDs, aspirin, anticoagulation * Await biopsy results * Discuss with GI regarding diet advancement and next steps # Post-Bariatric Stricture with Functional Obstruction EGD demonstrated stricture at prior bariatric surgery site with fluid backflow into esophagus. Plan: * Continue liquids as tolerated * Per GI, Gastrografin upper GI series tomorrow * Will likely require [place] bariatric surgery referral for definitive management # Acute on Chronic Microcytic Anemia # Iron Deficiency anemia Chronic iron deficiency (MCV 71, iron sat 17%) worsened by acute blood loss. Normal B12/folate excludes megaloblastic causes. Now improved after 3 units PRBC. Plan: * Continue transfusions as needed * Resume iron supplementation once cleared by GI * Transfuse only if Hgb <7 or symptomatic # Acute Kidney Injury, Improving FRANKLYN likely prerenal from decreased intake, vomiting, and anemia-related hypoperfusion. Improvement in creatinine (1.8 -> 1.6 -> 1.5). Renal ultrasound shows chronic parenchymal disease, not obstruction. Plan: * Avoid nephrotoxins * Gentle hydration as tolerated * Daily BMP * Monitor urine output # Possible Congestive Heart Failure # Chronic Lower Extremity Edema Patient on triamterene chronically, raising concern for underlying CHF or volume-related edema. Lower-extremity edema present. Prior EF preserved, but CHF status unclear. Plan: * Lasix x1 given * Echocardiogram ordered * Monitor volume status closely during transfusions # History of Coccidioidomycosis Known prior history of cocci, not on treatment, with persistent cavitary lung lesion. Plan: * Continue fluconazole * Cocci serologies pending * Monitor LFTs * Follow-up outpatient unless clinical change # GERD # Abnormal Esophagus distenstion on CT CT showing fluid-distended esophagus suggests possible stricture, dysmotility, or chronic esophagitis, which could also contribute to chronic blood loss and reflux symptoms. Plan: * Continue IV PPI * Likely outpatient unless GI recommends inpatient workup # Chronic Back Pain Longstanding pain without red-flag symptoms. NSAIDs contraindicated given active GI bleed. Plan: * Acetaminophen PRN * Avoid NSAIDs * Opioids only if severe and necessary # Depression / Insomnia Chronic, stable psychiatric conditions without acute decompensation. Plan: * Continue trazodone nightly * Restart venlafaxine once med rec complete Hospital Maintenance: DVT ppx: SCDs only GI ppx: Pantoprazole IV BID Diet: Clear liquid diet Code status: DNR/DNI Disposition: Telemetry. ----- Plan discussed with attending physician Dr. Caballero and senior resident Dr. Ju Ford MD PGY-1 Internal Medicine
--- NOTE | 2025-08-11 10:50 | PC.SS ---
75YO White male; reason for visit: GI BLEED. SS met with patient at bedside to complete initial assessment. Role and purpose of today?s contact explained to patient. Patient confirmed his demographic information. He stated his primary medical surrogate decisionmaker is his ex-spouse Grace Peter [phone]. Patient reported he lives alone in a home. Patient stated he is independent with ADL completion and utilizes a cane to assist with ambulation. PCP: Dr. Addison-[facility], last appt. 08/08/25. PHARMACY: delivered via mail by [facility]. Discharge plan discussed with patient, he is requesting to return home when medically clear. His sibling Dominick Garay to provide transportation. DISCHARGE PLAN: HOME ALT DECISIONMAKER: Ex-Spouse Grace Peter
[2025-08-11] MEDS: SODIUM CHLORIDE 0.9% 250 ML 250 ML 999 ML IV ×2 (11:21→13:01)
[2025-08-11] MEDS: MIDODRINE 5 MG TABLET 10 MG PO ×2 (11:22→21:26)
[2025-08-11 12:03] LABS: Lactate (Lactic Acid) 2.1 mMol/L (0.4-2.0)
[2025-08-11 13:10] LABS: Hematocrit 29.9 % (41.0-53.0)
[2025-08-11 13:31] LABS: Hemoglobin 8.7 g/dL (13.5-16.0)
[2025-08-11] MEDS: SODIUM CHLORIDE 0.9% 500 ML 500 ML 999 ML IV (13:43)
[2025-08-11] MEDS: LIDOCAINE 5% 1 PATCH TOP (13:47)
[2025-08-11] MEDS: metroNIDAZOLE/NS 500 MG IVPB 500 MG/100 ML BAG 200 MG IV ×2 (13:49→21:10)
[2025-08-11 14:55] LABS: Reflex Lactate? Y
[2025-08-11 15:58] LABS: Lactic Acid, 3 HR 2.2 mMol/L (0.4-2.0)
--- NOTE | 2025-08-11 17:07 | EKG_ITS ---
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
[2025-08-12] VITALS (14 sets, daily range): BP systolic 92–121; BP diastolic 44–64; PULSE 71–87; RESP 18–93; TEMP 36.9–37.4; O2SAT 91–99; BMI 35.5; BMI 35.4
--- NOTE | 2025-08-12 | XR_ITS ---
EXAMINATION: Upper GI series with KUB Esophagram standard Fluoroscopy 16 spot fluoroscopic films of the stomach Date and time: August 12, 2025, 1121 hours INDICATIONS: Clinical diagnosis gastric outlet obstruction, abdominal pain and distention this week TECHNIQUE AND FINDINGS: Nonobstructive bowel gas pattern Patient swallowed Gastrografin with no primary peristaltic waves, atonic esophagus Continuous gastroesophageal reflux Stomach is fluid-filled and the contrast is diluted in the stomach No contrast passes into the duodenum Fluoroscopy 1.3 minutes radiation dose 124.63 8 mGy IMPRESSION: No contrast passes out of the stomach, additional delayed films will be obtained
--- NOTE | 2025-08-12 | XR_ITS ---
Examination: Abdomen AP single view Technique: AP portable supine abdomen, single view Exam date and time: August 12, 2025, 1357 hours INDICATIONS: 1 hour delayed film. Upper GI series FINDINGS: Contrast has passed from the stomach into small bowel IMPRESSION: Negative for complete gastric outlet obstruction
[2025-08-12] MEDS: HYDROmorphone INJ 2 MG/ML VIAL 1 MG IVP ×3 (00:09→19:46)
[2025-08-12] MEDS: metroNIDAZOLE/NS 500 MG IVPB 500 MG/100 ML BAG 200 MG IV ×3 (04:57→21:29)
[2025-08-12 06:32] LABS: Basophils # (Auto) 0.1 Thou/mm3 (0.0-0.2); Basophils % (Auto) 0 % (0-2.5); Eosinophils # (Auto) 0.0 Thou/mm3 (0.0-0.5); Eosinophils % (Auto) 0 % (0-10); Hematocrit 28.8 % (41.0-53.0); Immature Granulocytes Auto 0.10 Thou/mm3 (0.00-0.00); Lymphocytes # (Auto) 1.8 Thou/mm3 (1.0-4.8); Lymphocytes % (Auto) 8 % (10-50); Mean Corpuscular HGB Conc 28.8 g/dl (31.0-37.0); Mean Corpuscular Hemoglobin 22.2 pg (25.0-35.0); Mean Corpuscular Volume 77 fL (80-100); Monocytes # (Auto) 1.4 Thou/mm3 (0.0-0.8); Monocytes % (Auto) 6 % (0-12); Neutrophils # (Auto) 19.8 Thou/mm3 (1.8-7.7); Neutrophils % (Auto) 85 % (37-80); Nucleated Red Blood Cell # 0.00 Thou/mm3 (0.00-0.00); Nucleated Red Blood Cell % 0 /100 WBC (0); Platelet Count 274 Thou/mm3 (140-440); RDW Standard Deviation 56.7 fL (35.1-43.9); Red Blood Count 3.74 Miln/mm3 (4.50-5.90); White Blood Count 23.2 Thou/mm3 (3.8-10.6)
[2025-08-12 06:41] LABS: Hemoglobin 8.3 g/dL (13.5-16.0)
[2025-08-12 06:43] LABS: Alanine Aminotransferase 9 U/L (10-49); Albumin, Serum 3.0 gm/dL (3.4-4.8); Albumin/Globulin Ratio 1.2 (1.2-2.2); Alkaline Phosphatase 66 U/L (46-116); Anion Gap 13 (7-16); Aspartate Amino Transferase 26 U/L (0-34); BUN/Creatinine Ratio 17 Ratio (12-20); Bilirubin,Total 0.5 mg/dL (0.3-1.2); Blood Urea Nitrogen 27 mg/dL (9-23); Calcium 8.9 mg/dL (8.3-10.6); Calcium (Corrected) 9.7 mg/dL (8.5-10.1); Carbon Dioxide 26.2 mMol/L (20.0-31.0); Chloride 108 mMol/L (98-107); Creatinine (Component) 1.6 mg/dL (0.6-1.3); Estimated Creatinine Clearance 41.3 mL/min (>60); Globulin 2.5 gm/dL (2.3-3.5); Glucose 120 mg/dL (74-106); Magnesium 1.7 mg/dL (1.6-2.6); Osmolality,Calculated 298 (275-295); Phosphorous 2.9 mg/dL (2.4-5.1); Potassium 4.9 mMol/L (3.4-5.1); Sodium 147 mMol/L (136-145); Total Protein 5.5 gm/dL (5.7-8.2); eGFR 45 See Note
--- NOTE | 2025-08-12 09:06 | ESPR_ITS ---
<Statement entered by Stephen Caballero MD - 08/16/25 08:34> I reviewed above note and agree with findings and plans. I have also personally examined the patient with medicine team and went over assessment and plan with medical team including recording studio intern and resident physician. <Statement entered by Juno Dodd MD - 08/13/25 12:12> No significant overnight events. Patient on room air today, blood pressure remaining stable. Patient pending upper GI series regarding the GE outlet obstruction. I discussed with and supervised the recording studio intern physician involved in the care of this patient. Patient assessment and plan was discussed with entire medicine team, including my attending. I agree with the assessment and plan as documented by recording studio intern doctor. Patient care was discussed with my attending physician Dr. Federico Dodd, PGY-3 Documentation for date of: 08/12/25 Subjective Subjective Interval history: Patient seen and examined this morning. Blood pressure has been holding with MAP 69. He reports that he feels tired, but denies dizziness, lightheadedness, chest pain, shortness of breath, nausea, vomiting, hematemesis, melena, or hematochezia. He is currently NPO for scheduled Gastrografin upper GI series. He complains of dry mouth;informed nursing to provide mouth swabs. He also reports dysuria starting this morning. Denies fever, chills, flank pain, or abdominal pain. No worsening lower extremity swelling. No new respiratory complaints, currently on room air. Exam Vital Signs Temp Pulse Resp BP Pulse Ox O2 Del Method O2 Flow Rate 99.3 F 77 18 94/57 L 91 L Room Air 3 08/12/25 04:09 08/12/25 07:01 08/12/25 07:01 08/12/25 04:09 08/12/25 04:09 08/11/25 04:00 08/12/25 07:01 Narrative Exam General: Patient alert, no acute distress, reports improvement in overall status. Cardiac: Regular rate and rhythm, normal S1, S2, no murmurs. Pulmonary: Clear lungs, wheezing on auscultation. Abdomen: Mild hernia noted, distended, positive bowel sounds, no guarding or rebound tenderness. Extremities: Bilateral 1+ pitting edema, pulses 2+ bilaterally. Skin: Warm, dry, no rashes or ecchymoses. Objective Labs 08/12/25 08:53 08/12/25 05:23 Labs: Laboratory Results - last 24 hr 08/11/25 08/11/25 08/11/25 11:45 12:50 15:42 WBC RBC Hgb 8.7 L Hct 29.9 L MCV MCH MCHC RDW Std Deviation Plt Count Neut % (Auto) Lymph % (Auto) Fannin % (Auto) Eos % (Auto) Baso % (Auto) Neut # (Auto) Lymph # (Auto) [place]annin # (Auto) Eos # (Auto) Baso # (Auto) Immature Gran # (Auto) Absolute Nucleated RBC Immature Gran % Nucleated RBC % Sodium Potassium Chloride Carbon Dioxide Anion Gap BUN Creatinine Estim Creat Clear Calc eGFR BUN/Creatinine Ratio Glucose Calculated Osmolality Lactic Acid 2.1 H 2.2 H Calcium Corrected Calcium Phosphorus Magnesium Total Bilirubin AST ALT Alkaline Phosphatase Total Protein Albumin Globulin Albumin/Globulin Ratio 08/12/25 05:23 WBC 23.2 H D RBC 3.74 L Hgb 8.3 L Hct 28.8 L MCV 77 L MCH 22.2 L MCHC 28.8 L RDW Std Deviation 56.7 H Plt Count 274 D Neut % (Auto) 85 H Lymph % (Auto) 8 L [place] % (Auto) 6 Eos % (Auto) 0 Baso % (Auto) 0 Neut # (Auto) 19.8 H Lymph # (Auto) 1.8 [place]in # (Auto) 1.4 H Eos # (Auto) 0.0 Baso # (Auto) 0.1 Immature Gran # (Auto) 0.10 H Absolute Nucleated RBC 0.00 Immature Gran % 0 Nucleated RBC % 0 Sodium 147 H Potassium 4.9 Chloride 108 H Carbon Dioxide 26.2 Anion Gap 13 BUN 27 H Creatinine 1.6 H Estim Creat Clear Calc 41.3 L eGFR 45 L BUN/Creatinine Ratio 17 Glucose 120 H D Calculated Osmolality 298 H Lactic Acid Calcium 8.9 Corrected Calcium 9.7 Phosphorus 2.9 Magnesium 1.7 Total Bilirubin 0.5 AST 26 ALT 9 L Alkaline Phosphatase 66 Total Protein 5.5 L Albumin 3.0 L Globulin 2.5 Albumin/Globulin Ratio 1.2 Quality Measures Quality Measures VTE prophylaxis Advance care planning discussed with:: patient Assessment & Plan Assessment Current Active Medications: Generic Name Dose Route Start Last Admin Trade Name Freq PRN Reason Stop Dose Admin Acetaminophen 650 mg 08/10/25 00:03 Acetaminophen 325 Mg Tablet PO 09/08/25 22:09 Q6H PRN Fever >100.4 or Pain Scale 1-3 Hydromorphone HCl 1 mg 08/10/25 06:00 08/12/25 00:09 Hydromorphone Inj 2 Mg/Ml Vial IVP 08/15/25 05:59 1 mg Q6HR PRN Administration PAIN SCALE 4-10(Mod-Sev Fluconazole 400 mg in 200 mls @ 100 mls/hr 08/11/25 09:00 08/11/25 08:13 Diflucan/Ns Ivpb IV 08/18/25 08:59 100 mls/hr QDAY PATRICIO Administration Levofloxacin/Dextrose 750 mg in 150 mls @ 100 mls/hr 08/11/25 10:45 08/11/25 11:21 Levaquin Ivpb IV 08/18/25 10:44 100 mls/hr QDAY PATRICIO Administration Metronidazole 500 mg in 100 mls @ 200 mls/hr 08/11/25 14:00 08/12/25 04:57 Flagyl 500 Mg Iv IV 08/18/25 13:59 200 mls/hr Q8HR PATRICIO Administration Dextrose/Sodium Chloride 1,000 mls @ 125 mls/hr 08/12/25 08:30 D5-Ns IV 09/11/25 08:14 .Q8H PATRICIO Lidocaine 1 patch 08/11/25 13:22 08/11/25 13:47 Lidocaine 5% 1 Patch TOP 09/10/25 13:21 1 patch UD PRN Administration back pain Midodrine 10 mg 08/11/25 21:21 08/11/25 21:26 Midodrine 5 Mg Tablet PO 09/10/25 21:59 10 mg TID PRN Administration If SBP <100 Ondansetron HCl 4 mg 08/09/25 23:51 Ondansetron Inj 2 Mg/Ml Inj 2 Ml IVP 09/08/25 23:50 Q8HR PRN NAUSEA OR VOMITING Protocol Pantoprazole Sodium 40 mg 08/10/25 09:00 08/11/25 21:09 Pantoprazole Inj 40 Mg Vial IVP 09/09/25 08:59 40 mg BID PATRICIO Administration Trazodone HCl 150 mg 08/09/25 22:13 08/10/25 22:50 Trazodone Hcl 50 Mg Tablet PO 09/09/25 20:59 150 mg HS PRN Administration INSOMNIA Plan 75-year-old male admitted for upper GI bleed with severe iron-deficiency anemia, hospital course complicated by acute hypoxic respiratory failure likely secondary to transfusion-associated volume overload, transient hypotension, persistent leukocytosis, and post-bariatric stricture. # Acute Hypoxic Respiratory Failure # Likely TACO/Volume Overload > Aspiration Pneumonia Repeat CXR shows near-complete resolution of bilateral upper-lobe infiltrates within 24 hours. Likely cardiogenic pulmonary edema or TACO rather than infectious pneumonia. Rapid radiographic improvement makes aspiration pneumonia less likely as the primary etiology. Echo shows preserved EF and low RA pressure, suggesting patient is now euvolemic. Plan: * Continue Levofloxacin 750 mg IV daily * Continue Metronidazole 500 mg IV q8h * Reassess need for antibiotics plan to de-escalate if cultures negative and WBC trends down * Supplemental O2, wean as tolerated * Strict I/Os * Monitor respiratory status closely * Repeat CXR only if clinical worsening # Leukocytosis Persistent leukocytosis (WBC 23.2 -> 21.4) with neutrophilic predominance (86%, ANC 18.4). Etiology likely stress/inflammatory response from recent transfusions, hypoxia, GI bleed, and possible aspiration. Infectious source if any is unclear given rapid radiographic improvement, absence of fever, and hemodynamic stability. Plan: * Trend daily CBC * Follow blood and urine cultures * Monitor fever curve * Reassess need for antibiotics plan to de-escalate if cultures negative and WBC trends down # Acute Upper GI Bleed Severe anemia with FOBT positive, microcytosis, and reflux symptoms strongly suggests occult upper GI bleeding. Absence of hematemesis or melena does not exclude bleeding. Given history of GERD, prior gastric stapling, and CT findings of abnormal esophagus and gastric thickening Likely differentials include peptic ulcer disease, erosive esophagitis, gastritis, or malignancy. NSAID use appears minimal. Patient remains hemodynamically stable but transfusion-dependent. EGD on 08/10 showed esophageal ulcers and gastritis, likely source of bleeding. No further hematemesis or melena. Hemoglobin slightly down (8.3 -> 7.8) but without hemodynamic instabilit. Plan: * Trend CBC daily * Continue pantoprazole IV BID * Avoid NSAIDs, aspirin, anticoagulation * Transfuse only if Hgb <7 or symptomatic * Await biopsy results * Discuss with GI regarding diet advancement and next steps # Acute Kidney Injury, Stable / Improving FRANKLYN likely prerenal from decreased intake, vomiting, and anemia-related hypoperfusion. Improvement in creatinine (1.8 -> 1.6 -> 1.5). Renal ultrasound shows chronic parenchymal disease, not obstruction. Likely prerenal. Creatinine stable this morning at 1.6. Plan: * Avoid nephrotoxins * Gentle hydration as tolerated * Daily BMP * Monitor urine output # Hypotension, resolved Patient was awake and asymptomatic but appeared more fatigued. Likely multifactorial (recent transfusions, infection, relative volume depletion). Lactic acid 2.1. Transient hypotension yesterday (MAP 58), improved after fluid bolus and midodrine. MAP stable today. Plan: * Continue BP monitoring * Maintain MAP >65 * Avoid aggressive IV fluids * Consider PRN midodrine if recurrent hypotension # Post-Bariatric Stricture with Functional Obstruction EGD demonstrated stricture at prior bariatric surgery site with fluid backflow into esophagus. Plan: * NPO for Gastrografin upper GI series today * Will likely require [place] bariatric surgery referral for definitive management # Acute on Chronic Microcytic Anemia # Iron Deficiency anemia Chronic iron deficiency (MCV 71, iron sat 17%) worsened by acute blood loss. Normal B12/folate excludes megaloblastic causes. Now improved after 3 units PRBC. Plan: * Continue transfusions as needed * Resume iron supplementation once cleared by GI * Transfuse only if Hgb <7 or symptomatic # Possible Congestive Heart Failure # Chronic Lower Extremity Edema Patient on triamterene chronically, raising concern for underlying CHF or volume-related edema. Echocardiogram shows normal LV size and systolic function (EF 60?65%) arguing against decompensated systolic heart failure or volume overload as the primary cause of hypoxia. Mild left atrial enlargement and indeterminate diastolic function raise the possibility of HFpEF?, but no evidence of elevated filling pressures on echo. Repea CXR shows rapid improvement supports volume overload physiology rather than decompensated CHF. Plan: * No scheduled diuresis at this time * Continue to monitor volume status and oxygen requirements * Continue home triamterene as outpatient if clinically indicated, will reassess prior to DC. * Reassess if hypoxia or edema worsens # Dysuria New urinary symptoms; already on levofloxacin which provides UTI coverage. Plan: * UA and urine culture sent * Adjust antibiotics if culture data warrant # History of Coccidioidomycosis Known prior history of cocci, not on treatment, with persistent cavitary lung lesion. Plan: * Continue fluconazole * Cocci serologies pending * Monitor LFTs * Follow-up outpatient unless clinical change # GERD # Abnormal Esophagus distenstion on CT CT showing fluid-distended esophagus suggests possible stricture, dysmotility, or chronic esophagitis, which could also contribute to chronic blood loss and reflux symptoms. Plan: * Continue IV PPI * Likely outpatient unless GI recommends inpatient workup # Chronic Back Pain Longstanding pain without red-flag symptoms. NSAIDs contraindicated given active GI bleed. Plan: * Acetaminophen PRN * Avoid NSAIDs * Opioids only if severe and necessary # Depression / Insomnia Chronic, stable psychiatric conditions without acute decompensation. Plan: * Continue trazodone nightly * Restart venlafaxine once med rec complete Hospital Maintenance: DVT ppx: SCDs only GI ppx: Pantoprazole IV BID Diet: Clear liquid diet Code status: DNR/DNI Disposition: Telemetry. ----- Plan discussed with attending physician Dr. Caballero and senior resident Dr. Ju Ford MD PGY-1 Internal Medicine
[2025-08-12 09:50] LABS: Basophils # (Auto) 0.1 Thou/mm3 (0.0-0.2); Basophils % (Auto) 0 % (0-2.5); Eosinophils # (Auto) 0.0 Thou/mm3 (0.0-0.5); Eosinophils % (Auto) 0 % (0-10); Hematocrit 26.3 % (41.0-53.0); Immature Granulocytes Auto 0.15 Thou/mm3 (0.00-0.00); Lymphocytes # (Auto) 1.5 Thou/mm3 (1.0-4.8); Lymphocytes % (Auto) 7 % (10-50); Mean Corpuscular HGB Conc 29.7 g/dl (31.0-37.0); Mean Corpuscular Hemoglobin 22.2 pg (25.0-35.0); Mean Corpuscular Volume 75 fL (80-100); Monocytes # (Auto) 1.2 Thou/mm3 (0.0-0.8); Monocytes % (Auto) 6 % (0-12); Neutrophils # (Auto) 18.4 Thou/mm3 (1.8-7.7); Neutrophils % (Auto) 86 % (37-80); Nucleated Red Blood Cell # 0.00 Thou/mm3 (0.00-0.00); Nucleated Red Blood Cell % 0 /100 WBC (0); Platelet Count 242 Thou/mm3 (140-440); RDW Standard Deviation 54.3 fL (35.1-43.9); Red Blood Count 3.52 Miln/mm3 (4.50-5.90); White Blood Count 21.4 Thou/mm3 (3.8-10.6)
[2025-08-12 09:57] LABS: Hemoglobin 7.8 g/dL (13.5-16.0)
[2025-08-12] MEDS: FLUCONAZOLE/NS 400 MG IVPB 400 MG/200 ML BAG 100 MG IV (10:02)
[2025-08-12] MEDS: DEXTROSE 5%-NS 1,000 ML 125 ML IV (10:03)
--- NOTE | 2025-08-12 10:16 | XR_ITS ---
Upright PA chest film on 08/12/2025 at 11:14 a.m. Comparison study 08/11/2025 CLINICAL INDICATION: ICU patient shortness of breath FINDINGS: There is mild there is moderate cardiomegaly unchanged from the previous film yesterday. There is no evidence of pulmonary venous hypertension, there is no pleural effusion on the right. There is blunting of the left lateral costophrenic sulcus which is slightly more prominent than on yesterday's film. Moderately extensive multifocal areas of patchy ill-defined alveolar infiltrates seen over the upper half of both lungs on yesterday's film have returned to normal. The left lower lobe is clear. In the right lower lobe there is some patchy increased density noted. Air bronchograms seen in the medial base of the left lower lobe behind the heart on yesterday's film are no longer present IMPRESSION: 1. Mild there is moderate cardiomegaly unchanged 2 there is slight blunting of the left lateral costophrenic sulcus. It is difficult to tell whether this might be more prominent than on yesterday's film which was taken with a darker film technique. There is the suggestion that it is chronic and may have been present on yesterday's film, as well. 3. Significant, almost complete improvement of the bilateral upper lobe patchy areas of infiltrate/congestion seen on yesterday's film have returned to normal there is quick resolution suggests probable CHF as the etiology. 4. On today's film there is slight increase in patchy density in the basal segments of the right lower lobe. Correlation with clinical findings is recommended air bronchograms in the medial base of the left lower lobe on yesterday's film are no longer seen. There is one very tiny nodular density seen at the medial base of the left lower lobe. 5 hide 2 obtaining follow-up chest x-rays with special attention to this possible nodular density in the base of the left lower lobe, at least in 3 months and then again at 6 months. Although it is felt to be unlikely, at this point I could not exclude the possibility of a very small early developing tumor. 5. There are numerous surgical clips in the left upper abdominal quadrant. Previous surgery in this area might explain the pleurodiaphragmatic adhesions at the left lateral lung base
[2025-08-12 13:16] LABS: Albumin, Serum 3.1 gm/dL (3.4-4.8); Anion Gap 10 (7-16); BUN/Creatinine Ratio 15 Ratio (12-20); Blood Urea Nitrogen 27 mg/dL (9-23); Calcium 9.0 mg/dL (8.3-10.6); Calcium (Corrected) 9.7 mg/dL (8.5-10.1); Carbon Dioxide 26.2 mMol/L (20.0-31.0); Chloride 107 mMol/L (98-107); Creatinine (Component) 1.8 mg/dL (0.6-1.3); Estimated Creatinine Clearance 36.7 mL/min (>60); Glucose 121 mg/dL (74-106); Osmolality,Calculated 291 (275-295); Phosphorous 2.0 mg/dL (2.4-5.1); Potassium 4.4 mMol/L (3.4-5.1); Sodium 143 mMol/L (136-145); eGFR 39 See Note
[2025-08-12 14:10] LABS: Cocci Serology, IgG Negative (Negative)
--- NOTE | 2025-08-12 15:05 | PC.DIETICIAN ---
Nutrition recommendations Low Fiber, Dys Mech Altered. Consider: 1. Liquid multivitamin/minerals. 2. Vitamin B12 1,000 mcg daily. 3. Folate 1mg daily. 4. Vitamin D3 3,000 IU daily
--- NOTE | 2025-08-12 15:16 | PC.RT ---
Educated pt on sputum sample and induction, pt stated he has a productive cough and can produce a sample without induction, sputum sample cup left at bedside.
--- NOTE | 2025-08-12 16:35 | PC.RT ---
sputum sample collected and sent to lab.
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
[2025-08-13] VITALS (14 sets, daily range): BP systolic 104–124; BP diastolic 60–79; PULSE 72–96; RESP 16–34; TEMP 36.4–37; O2SAT 82–99; BMI 35.4
[2025-08-13] MEDS: DEXTROSE 5%-NS 1,000 ML 80 ML IV (01:30)
[2025-08-13 02:02] LABS: Collection Type, Urine Clean Catch
[2025-08-13 02:11] LABS: Bilirubin,Urine Negative (Negative); Blood,Urine Negative (Negative); Clarity,Urine Turbid (Clear/Hazy); Color,Urine Yellow (Lt Yel-Yel); Glucose, Urine Negative (Negative); Ketones,Urine Negative (Negative); Leukocyte Esterase,Urine Positive (Negative); Nitrite,Urine Negative (Negative); PH,Urine 5.0 (5.0-7.0); Protein,Urine Negative (Neg - Trace); RBC,Urine 4 /hpf (0-3); Specific Gravity,Urine 1.021 (1.001-1.035); Squamous Epithelial Cell,Urine 1 /hpf (0-5); Urobilinogen,Urine Negative mg/dL (0.0-1.0); WBC,Urine 15 /hpf (0-5)
[2025-08-13] MEDS: HYDROmorphone INJ 2 MG/ML VIAL 1 MG IVP ×3 (02:45→19:26)
[2025-08-13] MEDS: metroNIDAZOLE/NS 500 MG IVPB 500 MG/100 ML BAG 200 MG IV ×3 (05:47→21:40)
[2025-08-13 06:28] LABS: Basophils # (Auto) 0.0 Thou/mm3 (0.0-0.2); Basophils % (Auto) 0 % (0-2.5); Eosinophils # (Auto) 0.1 Thou/mm3 (0.0-0.5); Eosinophils % (Auto) 1 % (0-10); Hematocrit 24.4 % (41.0-53.0); Immature Granulocytes Auto 0.05 Thou/mm3 (0.00-0.00); Lymphocytes # (Auto) 1.0 Thou/mm3 (1.0-4.8); Lymphocytes % (Auto) 6 % (10-50); Mean Corpuscular HGB Conc 29.5 g/dl (31.0-37.0); Mean Corpuscular Hemoglobin 22.1 pg (25.0-35.0); Mean Corpuscular Volume 75 fL (80-100); Monocytes # (Auto) 1.1 Thou/mm3 (0.0-0.8); Monocytes % (Auto) 7 % (0-12); Neutrophils # (Auto) 14.1 Thou/mm3 (1.8-7.7); Neutrophils % (Auto) 86 % (37-80); Nucleated Red Blood Cell # 0.00 Thou/mm3 (0.00-0.00); Nucleated Red Blood Cell % 0 /100 WBC (0); Platelet Count 237 Thou/mm3 (140-440); RDW Standard Deviation 56.0 fL (35.1-43.9); Red Blood Count 3.26 Miln/mm3 (4.50-5.90); White Blood Count 16.4 Thou/mm3 (3.8-10.6)
[2025-08-13 06:31] LABS: Alanine Aminotransferase 9 U/L (10-49); Albumin, Serum 2.7 gm/dL (3.4-4.8); Albumin/Globulin Ratio 1.2 (1.2-2.2); Alkaline Phosphatase 70 U/L (46-116); Anion Gap 12 (7-16); Aspartate Amino Transferase 17 U/L (0-34); BUN/Creatinine Ratio 17 Ratio (12-20); Bilirubin,Total 0.4 mg/dL (0.3-1.2); Blood Urea Nitrogen 24 mg/dL (9-23); Calcium 8.5 mg/dL (8.3-10.6); Calcium (Corrected) 9.5 mg/dL (8.5-10.1); Carbon Dioxide 26.5 mMol/L (20.0-31.0); Chloride 108 mMol/L (98-107); Creatinine (Component) 1.4 mg/dL (0.6-1.3); Estimated Creatinine Clearance 47.2 mL/min (>60); Globulin 2.3 gm/dL (2.3-3.5); Glucose 106 mg/dL (74-106); Magnesium 1.5 mg/dL (1.6-2.6); Osmolality,Calculated 294 (275-295); Phosphorous 2.5 mg/dL (2.4-5.1); Potassium 3.4 mMol/L (3.4-5.1); Sodium 146 mMol/L (136-145); Total Protein 5.0 gm/dL (5.7-8.2); eGFR 52 See Note
[2025-08-13 07:32] LABS: Hemoglobin 7.2 g/dL (13.5-16.0)
[2025-08-13] MEDS: POTASSIUM CHL 10 mEq IVPB 10 MEQ/100 ML BAG 100 MEQ IV ×2 (08:41→10:04)
[2025-08-13] MEDS: FLUCONAZOLE/NS 400 MG IVPB 400 MG/200 ML BAG 100 MG IV (08:42)
[2025-08-13] MEDS: Magnesium Sulfate 4 GM Ivpb 4 GM/50 ML BAG IV (08:42)
--- NOTE | 2025-08-13 09:31 | PC.CC ---
Addendum entered by Lauren Fox RN 08/13/25 17:49: 1728 initiated referral to [facility] Addendum entered by Lauren Fox RN 08/13/25 17:00: 1645 Called the [facility] and spoke with Gabrielle the research greenhouse supervisor. Gabrielle informed justowriter operator that they do not have any beds and she gave verbal authorization to transfer to another facility since deptartment that gives auth is only there M-F business hours excluding holidays. Addendum entered by Lauren Fox RN 08/13/25 14:44: 1340 Called [facility] and spoke with Isaura the TC nurse to get an update regarding transfer status. Isaura informed justowriter operator that she is not at her desk and would call back. At 1408 received call from Isaura, she informed [facility] operator that they are still holding in their ER and would present the case to their research greenhouse supervisor at 1600 and gave permission for our facility to look elsewhere in the meantime. Addendum entered by Lauren Fox RN 08/13/25 10:55: 1009 called the [facility] and spoke with Isaura, she informed justowriter operator they are holding in their ER and she would review the chart when beds are available. Original Note: Spoke with Dr. [place] regarding reason for transfer, he informed [facility]riter operator [facility] for now, Dr. [place] will update TC when patient decides.
--- NOTE | 2025-08-13 09:52 | EVENTNT_ITS ---
Documentation for date of: 08/13/25 Event Note Event Note: Reason for Note: Request for transfer to [facility] for definitive bariatric surgical management of gastric outlet obstruction. Clinical Summary 75-year-old male with a history of prior bariatric surgery (gastric stapling 25 years ago) admitted for acute upper GI bleed with severe iron-deficiency anemia (initial Hgb 6.2) requiring multiple PRBC transfusions. 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 A subsequent Gastrografin upper GI series confirmed complete gastric outlet obstruction, with no contrast passage from the stomach into the duodenum, despite delayed imaging. GI service assessed the patient and determined that the obstruction is secondary to prior bariatric surgical intervention and cannot be managed endoscopically at this facility. Reason Transfer Is Required * Patient has complete gastric obstruction due to prior bariatric surgery * Definitive management requires bariatric surgical intervention at a tertiary center * Patient [place] insurance, and GI explicitly recommends transfer to [facility] for bariatric surgery evaluation and intervention * Continued inpatient management at current facility is supportive only and does not address the underlying obstruction Current Clinical Status * Hemodynamically stable * On low fiber diet * At high risk for aspiration, aspiration pneumonia, choking, and recurrent bleeding if obstruction remains untreated * Hemoglobin remains low (downtrending to 7.2) but patient is stable after transfusion * No active hematemesis or melena at this time * Respiratory status stable on room air Current Management * IV pantoprazole BID * PRBC transfusions as needed * Aspiration precautions * Ongoing monitoring of CBC and electrolytes Disposition Given confirmed gastric outlet obstruction related to prior bariatric surgery and lack of local surgical capability, transfer to [facility] for bariatric surgery evaluation and management is medically necessary and strongly recommended. ----- Plan discussed with attending physician Dr. Federico Ford MD PGY-1 Internal Medicine
--- NOTE | 2025-08-13 09:52 | PD.RESEVENT ---
Documentation for date of: 08/13/25 Event Note Event Note: Reason for Note: Request for transfer to [place] system for definitive bariatric surgical management of gastric outlet obstruction. Clinical Summary 75-year-old male with a history of prior bariatric surgery (gastric stapling 25 years ago) admitted for acute upper GI bleed with severe iron-deficiency anemia (initial Hgb 6.2) requiring multiple PRBC transfusions. 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 A subsequent Gastrografin upper GI series confirmed complete gastric outlet obstruction, with no contrast passage from the stomach into the duodenum, despite delayed imaging. GI service assessed the patient and determined that the obstruction is secondary to prior bariatric surgical intervention and cannot be managed endoscopically at this facility. Reason Transfer Is Required Patient has complete gastric obstruction due to prior bariatric surgery Definitive management requires bariatric surgical intervention at a tertiary center Patient [place] insurance, and GI explicitly recommends transfer to [facility] for bariatric surgery evaluation and intervention Continued inpatient management at current facility is supportive only and does not address the underlying obstruction Current Clinical Status Hemodynamically stable On low fiber diet At high risk for aspiration, aspiration pneumonia, choking, and recurrent bleeding if obstruction remains untreated Hemoglobin remains low (downtrending to 7.2) but patient is stable after transfusion No active hematemesis or melena at this time Respiratory status stable on room air Current Management IV pantoprazole BID PRBC transfusions as needed Aspiration precautions Ongoing monitoring of CBC and electrolytes Disposition Given confirmed gastric outlet obstruction related to prior bariatric surgery and lack of local surgical capability, transfer to [place] facility for bariatric surgery evaluation and management is medically necessary and strongly recommended. ----- Plan discussed with attending physician Dr. Federico Ford MD PGY-1 Internal Medicine
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
--- NOTE | 2025-08-13 12:06 | ESPR_ITS ---
<Statement entered by Stephen Caballero MD - 08/17/25 12:55> I reviewed above note and agree with findings and plans. I have also personally examined the patient with medicine team and went over assessment and plan with medical team including summer intern and resident physician. <Statement entered by Juno Dodd MD - 08/14/25 10:58> I discussed with and supervised the summer intern physician involved in the care of this patient. Patient assessment and plan was discussed with entire medicine team, including my attending. I agree with the assessment and plan as documented by summer intern doctor. Patient care was discussed with my attending physician Dr. Federico Dodd, PGY-3 Documentation for date of: 08/13/25 Subjective Subjective Interval history: Patient seen and examined this morning. He reports feeling tired but denies dizziness, lightheadedness, chest pain, shortness of breath, nausea, vomiting, hematemesis, melena, or hematochezia. No abdominal pain. No new respiratory complaints. He is currently tolerating low fiber diet. Earlier today, the patient expressed a desire to leave the hospital due to personal obligations. A detailed discussion was held regarding his condition, including confirmed gastric outlet obstruction related to prior bariatric surgery, downtrending hemoglobin, and [facility] The risks of leaving, including aspiration, aspiration pneumonia, choking, recurrent bleeding, and , were explained in detail. The patient verbalized understanding of these risks. On re-discussion later today, the patient changed his mind and agreed to remain hospitalized and [facility] He has no additional complaints at this time. Exam Vital Signs Temp Pulse Resp BP Pulse Ox O2 Del Method O2 Flow Rate 98.4 F 80 28 H 104/63 96 Nasal Cannula 1 08/13/25 04:00 08/13/25 08:00 08/13/25 08:00 08/13/25 08:00 08/13/25 08:00 08/12/25 16:00 08/12/25 16:00 Narrative Exam General: Patient alert, no acute distress, reports improvement in overall status. Cardiac: Regular rate and rhythm, normal S1, S2, no murmurs. Pulmonary: Clear lungs, wheezing on auscultation. Abdomen: Mild hernia noted, distended, positive bowel sounds, no guarding or rebound tenderness. Extremities: Bilateral 1+ pitting edema, pulses 2+ bilaterally. Skin: Warm, dry, no rashes or ecchymoses. Objective Labs 08/13/25 04:50 08/13/25 04:50 Labs: Laboratory Results - last 24 hr 08/09/25 08/10/25 08/12/25 13:53 06:20 12:44 WBC RBC Hgb Hct MCV MCH MCHC RDW Std Deviation Plt Count Neut % (Auto) Lymph % (Auto) [place] % (Auto) Eos % (Auto) Baso % (Auto) Neut # (Auto) Lymph # (Auto) [place] # (Auto) Eos # (Auto) Baso # (Auto) Immature Gran # (Auto) Absolute Nucleated RBC Immature Gran % Nucleated RBC % Sodium 143 Potassium 4.4 D Chloride 107 Carbon Dioxide 26.2 Anion Gap 10 BUN 27 H Creatinine 1.8 H Estim Creat Clear Calc 36.7 L eGFR 39 L BUN/Creatinine Ratio 15 Glucose 121 H Calculated Osmolality 291 Calcium 9.0 Corrected Calcium 9.7 Phosphorus 2.0 L Magnesium Total Bilirubin AST ALT Alkaline Phosphatase Total Protein Albumin 3.1 L Globulin Albumin/Globulin Ratio Ur Collection Type Urine Color Urine Clarity Urine pH Ur Specific [place] Urine Protein Urine Glucose (UA) Urine Ketones Urine Blood Urine Nitrite Urine Bilirubin Urine Urobilinogen (Auto) Ur Leukocyte Esterase Urine RBC Urine WBC Ur Squamous Epith Cells Urine Bacteria Coccidioides IgG Ab Negative Blood Type Antibody Screen Crossmatch See Detail Blood Bank Wristband ID 08/13/25 08/13/25 08/13/25 00:25 04:50 08:04 WBC 16.4 H D RBC 3.26 L Hgb 7.2 L Hct 24.4 L MCV 75 L MCH 22.1 L MCHC 29.5 L RDW Std Deviation 56.0 H Plt Count 237 Neut % (Auto) 86 H Lymph % (Auto) 6 L [place] % (Auto) 7 Eos % (Auto) 1 Baso % (Auto) 0 Neut # (Auto) 14.1 H Lymph # (Auto) 1.0 [place] # (Auto) 1.1 H Eos # (Auto) 0.1 Baso # (Auto) 0.0 Immature Gran # (Auto) 0.05 H Absolute Nucleated RBC 0.00 Immature Gran % 0 Nucleated RBC % 0 Sodium 146 H Potassium 3.4 D Chloride 108 H Carbon Dioxide 26.5 Anion Gap 12 BUN 24 H Creatinine 1.4 H Estim Creat Clear Calc 47.2 L eGFR 52 L BUN/Creatinine Ratio 17 Glucose 106 Calculated Osmolality 294 Calcium 8.5 Corrected Calcium 9.5 Phosphorus 2.5 Magnesium 1.5 L Total Bilirubin 0.4 AST 17 ALT 9 L Alkaline Phosphatase 70 Total Protein 5.0 L Albumin 2.7 L Globulin 2.3 Albumin/Globulin Ratio 1.2 Ur Collection Type Clean Catch Urine Color Yellow Urine Clarity Turbid A Urine pH 5.0 Ur Specific [place] 1.021 Urine Protein Negative Urine Glucose (UA) Negative Urine Ketones Negative Urine Blood Negative Urine Nitrite Negative Urine Bilirubin Negative Urine Urobilinogen (Auto) Negative Ur Leukocyte Esterase Positive Urine RBC 4 H Urine WBC 15 H Ur Squamous Epith Cells 1 Urine Bacteria None Coccidioides IgG Ab Blood Type O Positive Antibody Screen NEGATIVE Crossmatch See Detail Blood Bank Wristband ID Yes Quality Measures Quality Measures VTE prophylaxis Advance care planning discussed with:: patient Assessment & Plan Assessment Current Active Medications: Generic Name Dose Route Start Last Admin Trade Name Freq PRN Reason Stop Dose Admin Acetaminophen 650 mg 08/10/25 00:03 Acetaminophen 325 Mg Tablet PO 09/08/25 22:09 Q6H PRN Fever >100.4 or Pain Scale 1-3 Hydromorphone HCl 1 mg 08/10/25 06:00 08/13/25 02:45 Hydromorphone Inj 2 Mg/Ml Vial IVP 08/15/25 05:59 1 mg Q6HR PRN Administration PAIN SCALE 4-10(Mod-Sev Fluconazole 400 mg in 200 mls @ 100 mls/hr 08/11/25 09:00 08/13/25 08:42 Diflucan/Ns Ivpb IV 08/18/25 08:59 100 mls/hr QDAY PATRICIO Administration Levofloxacin/Dextrose 750 mg in 150 mls @ 100 mls/hr 08/11/25 10:45 08/13/25 08:41 Levaquin Ivpb IV 08/18/25 10:44 100 mls/hr QDAY PATRICIO Administration Metronidazole 500 mg in 100 mls @ 200 mls/hr 08/11/25 14:00 08/13/25 05:47 Flagyl 500 Mg Iv IV 08/18/25 13:59 200 mls/hr Q8HR PATRICIO Administration Lidocaine 1 patch 08/11/25 13:22 08/11/25 13:47 Lidocaine 5% 1 Patch TOP 09/10/25 13:21 1 patch UD PRN Administration back pain Midodrine 10 mg 08/12/25 12:57 Midodrine 5 Mg Tablet PO 09/10/25 21:20 Q8H PRN If SBP <100 Ondansetron HCl 4 mg 08/09/25 23:51 Ondansetron Inj 2 Mg/Ml Inj 2 Ml IVP 09/08/25 23:50 Q8HR PRN NAUSEA OR VOMITING Protocol Pantoprazole Sodium 40 mg 08/10/25 09:00 08/13/25 08:42 Pantoprazole Inj 40 Mg Vial IVP 09/09/25 08:59 40 mg BID PATRICIO Administration Trazodone HCl 150 mg 08/09/25 22:13 08/10/25 22:50 Trazodone Hcl 50 Mg Tablet PO 09/09/25 20:59 150 mg HS PRN Administration INSOMNIA Plan 75-year-old male admitted for upper GI bleed with severe iron-deficiency anemia, complicated by post-bariatric gastric outlet obstruction requiring transfer for definitive surgical management. # Gastric Outlet Obstruction Confirmed complete obstruction on upper GI series, not amenable to endoscopic management. Plan: * Continue inpatient care * On low fiber diet currently * Aspiration precautions * Continue coordination with [place] transfer services * Bariatric surgery evaluation at [place] required for definitive management # Acute Hypoxic Respiratory Failure # Likely TACO/Volume Overload > Aspiration Pneumonia Repeat CXR shows near-complete resolution of bilateral upper-lobe infiltrates within 24 hours. Likely cardiogenic pulmonary edema or TACO rather than infectious pneumonia. Rapid radiographic improvement makes aspiration pneumonia less likely as the primary etiology. Echo shows preserved EF and low RA pressure, suggesting patient is now euvolemic. Currently stable on room air. Plan: * Continue Levofloxacin 750 mg IV daily * Continue Metronidazole 500 mg IV q8h * Reassess need for antibiotics plan to de-escalate if cultures negative and WBC trends down * Supplemental O2 as needed * Strict I/Os * Monitor respiratory status closely * Repeat CXR only if clinical worsening # Leukocytosis, improving Persistent leukocytosis (WBC 23.2 -> 21.4 -> 16.4) with neutrophilic predominance (86%, ANC 18.4). Etiology likely stress/inflammatory response from recent transfusions, hypoxia, GI bleed, and possible aspiration. Infectious source if any is unclear given rapid radiographic improvement, absence of fever, and hemodynamic stability. Leukocytosis improving; likely stress response. Plan: * Trend daily CBC * Follow blood and urine cultures * Monitor fever curve * Reassess need for antibiotics plan to de-escalate if cultures negative and WBC trends down # Acute Upper GI Bleed Severe anemia with FOBT positive, microcytosis, and reflux symptoms strongly suggests occult upper GI bleeding. Absence of hematemesis or melena does not exclude bleeding. Given history of GERD, prior gastric stapling, and CT findings of abnormal esophagus and gastric thickening Likely differentials include peptic ulcer disease, erosive esophagitis, gastritis, or malignancy. NSAID use appears minimal. Patient remains hemodynamically stable but transfusion-dependent. EGD on 08/10 showed esophageal ulcers and gastritis, likely source of bleeding. No further hematemesis or melena. Hemoglobin downtrending to 7.2 but patient hemodynamically stable. Plan: * Trend CBC daily * Continue PRBC transfusion as ordered * Continue pantoprazole IV BID * Avoid NSAIDs, aspirin, anticoagulation * Transfuse only if Hgb <7 or symptomatic * Await biopsy results # Acute Kidney Injury, Stable / Improving [place] likely prerenal from decreased intake, vomiting, and anemia-related hypoperfusion. Improvement in creatinine (1.8 -> 1.6 -> 1.4). Renal ultrasound shows chronic parenchymal disease, not obstruction. Likely prerenal. Creatinine stable this morning at 1.4 Plan: * Avoid nephrotoxins * Gentle hydration as tolerated * Daily BMP * Monitor urine output # Hypotension, resolved Patient was awake and asymptomatic but appeared more fatigued. Likely multifactorial (recent transfusions, infection, relative volume depletion). Lactic acid 2.1. Transient hypotension yesterday (MAP 58), improved after fluid bolus and midodrine. MAP stable today. Plan: * Continue BP monitoring * Maintain MAP >65 * Avoid aggressive IV fluids * Consider PRN midodrine if recurrent hypotension # Post-Bariatric Stricture with Functional Obstruction EGD demonstrated stricture at prior bariatric surgery site with fluid backflow into esophagus. Plan: * Will likely require [place] bariatric surgery referral for definitive management # Acute on Chronic Microcytic Anemia # Iron Deficiency anemia Chronic iron deficiency (MCV 71, iron sat 17%) worsened by acute blood loss. Normal B12/folate excludes megaloblastic causes. Now improved after 3 units PRBC. Plan: * Continue transfusions as needed * Resume iron supplementation once cleared by GI * Transfuse only if Hgb <7 or symptomatic # Possible Congestive Heart Failure # Chronic Lower Extremity Edema Patient on triamterene chronically, raising concern for underlying CHF or volume-related edema. Echocardiogram shows normal LV size and systolic function (EF 60?65%) arguing against decompensated systolic heart failure or volume overload as the primary cause of hypoxia. Mild left atrial enlargement and indeterminate diastolic function raise the possibility of HFpEF?, but no evidence of elevated filling pressures on echo. Repea CXR shows rapid improvement supports volume overload physiology rather than decompensated CHF. Plan: * No scheduled diuresis at this time * Continue to monitor volume status and oxygen requirements * Continue home triamterene as outpatient if clinically indicated, will reassess prior to DC. * Reassess if hypoxia or edema worsens # Dysuria New urinary symptoms; already on levofloxacin which provides UTI coverage. UA with pyuria; patient already on levofloxacin. Plan: * Urine culture sent * Adjust antibiotics if culture data warrant # History of Coccidioidomycosis Known prior history of cocci, not on treatment, with persistent cavitary lung lesion. IGM negative Plan: * Continue fluconazole * Cocci serologies pending * Monitor LFTs * Follow-up outpatient unless clinical change # GERD # Abnormal Esophagus distenstion on CT CT showing fluid-distended esophagus suggests possible stricture, dysmotility, or chronic esophagitis, which could also contribute to chronic blood loss and reflux symptoms. Plan: * Continue IV PPI * Likely outpatient unless GI recommends inpatient workup # Chronic Back Pain Longstanding pain without red-flag symptoms. NSAIDs contraindicated given active GI bleed. Plan: * Acetaminophen PRN * Avoid NSAIDs * Opioids only if severe and necessary # Depression / Insomnia Chronic, stable psychiatric conditions without acute decompensation. Plan: * Continue trazodone nightly * Restart venlafaxine once med rec complete Hospital Maintenance: DVT ppx: SCDs only GI ppx: Pantoprazole IV BID Diet: low fiber diet Code status: DNR/DNI Disposition: Pending transfer. ----- Plan discussed with attending physician Dr. Caballero and senior resident Dr. Ju Ford MD PGY-1 Internal Medicine
--- NOTE | 2025-08-13 15:14 | PC.SS ---
Rounding Note: Patient is pending transfer. Dr. Melendez consulting.
[2025-08-13 16:50] LABS: Hematocrit 29.7 % (41.0-53.0); Hemoglobin 9.0 g/dL (13.5-16.0)
[2025-08-14] VITALS: BP 130/75; PULSE 68; PULSE 72; RESP 17; TEMP 36.3; O2SAT 95
[2025-08-14] MEDS: HYDROmorphone INJ 2 MG/ML VIAL 1 MG IVP ×2 (02:08→10:19)
[2025-08-14 04:00] VITALS: BP 109/67; PULSE 83; PULSE 97; RESP 17; TEMP 36.4; O2SAT 95
[2025-08-14 04:13] VITALS: PULSE 74; RESP 20; RESP 95
[2025-08-14 05:28] LABS: Basophils # (Auto) 0.1 Thou/mm3 (0.0-0.2); Basophils % (Auto) 0 % (0-2.5); Eosinophils # (Auto) 0.2 Thou/mm3 (0.0-0.5); Eosinophils % (Auto) 1 % (0-10); Hematocrit 26.4 % (41.0-53.0); Immature Granulocytes Auto 0.08 Thou/mm3 (0.00-0.00); Lymphocytes # (Auto) 1.2 Thou/mm3 (1.0-4.8); Lymphocytes % (Auto) 8 % (10-50); Mean Corpuscular HGB Conc 29.9 g/dl (31.0-37.0); Mean Corpuscular Hemoglobin 22.6 pg (25.0-35.0); Mean Corpuscular Volume 75 fL (80-100); Monocytes # (Auto) 1.1 Thou/mm3 (0.0-0.8); Monocytes % (Auto) 8 % (0-12); Neutrophils # (Auto) 11.5 Thou/mm3 (1.8-7.7); Neutrophils % (Auto) 82 % (37-80); Nucleated Red Blood Cell # 0.00 Thou/mm3 (0.00-0.00); Nucleated Red Blood Cell % 0 /100 WBC (0); Platelet Count 226 Thou/mm3 (140-440); RDW Standard Deviation 58.1 fL (35.1-43.9); Red Blood Count 3.50 Miln/mm3 (4.50-5.90); White Blood Count 14.0 Thou/mm3 (3.8-10.6)
[2025-08-14] MEDS: metroNIDAZOLE/NS 500 MG IVPB 500 MG/100 ML BAG 200 MG IV (05:28)
[2025-08-14 05:51] LABS: Hemoglobin 7.9 g/dL (13.5-16.0)
[2025-08-14 06:00] VITALS: BMI 35.4
[2025-08-14 06:18] LABS: Alanine Aminotransferase 9 U/L (10-49); Albumin, Serum 3.0 gm/dL (3.4-4.8); Albumin/Globulin Ratio 1.3 (1.2-2.2); Alkaline Phosphatase 70 U/L (46-116); Anion Gap 10 (7-16); Aspartate Amino Transferase 18 U/L (0-34); BUN/Creatinine Ratio 14 Ratio (12-20); Bilirubin,Total 0.5 mg/dL (0.3-1.2); Blood Urea Nitrogen 17 mg/dL (9-23); Calcium 8.5 mg/dL (8.3-10.6); Calcium (Corrected) 9.3 mg/dL (8.5-10.1); Carbon Dioxide 26.0 mMol/L (20.0-31.0); Chloride 109 mMol/L (98-107); Creatinine (Component) 1.2 mg/dL (0.6-1.3); Estimated Creatinine Clearance 55.0 mL/min (>60); Globulin 2.4 gm/dL (2.3-3.5); Glucose 102 mg/dL (74-106); Magnesium 1.7 mg/dL (1.6-2.6); Osmolality,Calculated 290 (275-295); Phosphorous 2.8 mg/dL (2.4-5.1); Potassium 4.1 mMol/L (3.4-5.1); Sodium 145 mMol/L (136-145); Total Protein 5.4 gm/dL (5.7-8.2); eGFR > 60 See Note
[2025-08-14 08:00] VITALS: BP 106/64; PULSE 73; PULSE 74; RESP 18; TEMP 36.4; O2SAT 90
[2025-08-14] MEDS: FLUCONAZOLE/NS 400 MG IVPB 400 MG/200 ML BAG 100 MG IV (09:14)
--- NOTE | 2025-08-14 09:23 | PC.CM ---
Addendum entered by Javier Giles RN 08/14/25 11:56: 1155-Received call from TANNER Monae at [facility] transfer center, they are declining transfer at this time, after review by Dr. Man, they do not see an obstruction and patient does not require surgical intervention. Informed Dr. Dodd and transfer cancelled at this time. Addendum entered by Javier Giles RN 08/14/25 11:03: 1040- Received call from [facility] TANNER Nixon, they are declining transfer at this time, their GI surgeon education administrative assistant Dr. Leon states that there is no need for transfer at this time, his recommendation is to treat pneumonia and leukocytosis and have patient follow up with the [facility] as an outpatient for bariatric surgical services. Called Dr. Dodd and informed him of Dr. Leon's recommendations, he states that they will go ahead and discharge patient and follow up as o/p at [facility]. Addendum entered by Javier Giles RN 08/14/25 10:13: 1010-Call to [facility], spoke with TANNER Nixon provided clinical information for patient as well as contact information for TC and referring MD. She will review packet that was sent to them and present to her team for review. Pending call back from them at this time. Addendum entered by Javier Giles RN 08/14/25 09:47: 0945-Transfer packets sent to [facility], [facility], and [facility] via XM fax. Pushed images to [facility] via synapse. Original Note: 0920- Transfer packet created, imaging placed on CD and transfer acknowledgment signed by patient. Call to [facility], spoke with BYRON Ferraro, they are still not accepting transfers at this time due to capacity.
[2025-08-14 12:00] VITALS: BP 123/31; PULSE 80; RESP 18; TEMP 36.3; O2SAT 95
--- NOTE | 2025-08-14 15:49 | ESDS_ITS ---
<Statement entered by Stephen Caballero MD - 08/19/25 07:58> I reviewed above note and agree with findings and plans. I have also personally examined the patient with medicine team and went over assessment and plan with medical team including seo intern and resident physician. Planned Discharge Date 08/14/25 DS: Providers Provider Date of admission: 08/09/25 22:14 Primary care physician: Physician No Primary/Family Admitting Provider: Ash Priest DO Attending Provider on Admission: Stephen Caballero MD Consults: 08/09/25 21:09 Consult to Gastroenterology Stat Comment: [facility]GIB Consulting Provider: Federico Melendez 08/10/25 09:09 Health Equity Referral - Utilities Routine Comment: Positive screening for utility assistance needs. 08/11/25 10:18 Referral Speech Therapy Routine Comment: 08/13/25 07:28 Referral - Sanitary Aide Routine Service Needed for Transfer: Gastroenterology Attending Provider on DC: Stephen Caballero MD Discharging Provider: Stephen Caballero MD DS: Diagnosis Problem List Completed Was Problem List Reviewed/Reconciled?: Yes Hospital Course Hospital Course Hospital course: This is a 75-year-old male admitted for an acute upper GI bleed and severe iron- deficiency anemia requiring transfusion, with an EGD revealing esophageal ulcers, gastritis, and a high-grade stricture at a prior bariatric surgery site. His hospital course was complicated by a gastric outlet obstruction confirmed by an upper GI series, which was not amenable to endoscopic management. He remained hemodynamically stable on IV PPI therapy and received three units of PRBCs for transfusion-dependent anemia. During the admission, the patient experienced acute hypoxic respiratory failure and leukocytosis. While initially treated for possible aspiration pneumonia, rapid radiographic improvement and an echocardiogram showing a preserved ejection fraction suggest the hypoxia was more likely due to volume overload or TACO. His respiratory status has since stabilized on room air, and his leukocytosis and acute kidney injury are both resolving with conservative management. He was also started on IV antibiotics for pyuria and symptomatic dysuria. We have attempted transfer to tertiary center for bariatric intervention given proximal gastric body stricture. However for 4 out of 4 facilities have declined due to nonemergent transfer matter. Will discharge with recommendations to continue with soft liquid diet which he has been tolerating and close follow-up with PCP for referral for bariatric surgery intervention as soon as possible. Additionally, he was diagnosed with cocci prior to admission but states he is not taking his FLUCONAZOLE and never evidence of cavitary lesions on imaging during this admission. We have continued FLUCONAZOLE during hospitalization, and discharged on oral FLUCONAZOLE. Recommended follow-up with PCP regarding recommendation. PATIENT INSTRUCTIONS: * Follow-up with PCP within 1-2 weeks of discharge. * Recommenced follow-up with nephrology (kidney doctor) for suspected chronic kidney disease. * He will need referral to tertiary center for GI surgery for proximal gastric body stricture. Please discuss with PCP. * Recommended repeat CBC lab in 1 week to follow-up with anemia. Please use provided lab order. Please forward the results to your PCP for review. * Continue using PROTONIX 40 mg daily to prevent gastritis and esophagitis and GI bleed. * Continues on MIRALAX as needed to maintain regular bowel and soft stool. * Continue taking medications as prescribed below. * Return to Emergency Room if symptoms persist, worsen, or new symptoms develop. ADMISSION DIAGNOSES: # Acute Hypoxic Respiratory Failure # Likely TACO/Volume Overload > Aspiration Pneumonia # Leukocytosis, improving # Acute Upper GI Bleed # Acute Kidney Injury, Stable / Improving # Hypotension, resolved # Post-Bariatric Stricture with Functional Obstruction # Acute on Chronic Microcytic Anemia # Iron Deficiency anemia # Possible Congestive Heart Failure # Chronic Lower Extremity Edema # Dysuria # History of Coccidioidomycosis # GERD # Abnormal Esophagus distenstion on CT # Chronic Back Pain # Depression / Insomnia Case was discussed with attending physician. Lesley Hightower DO PGY II This document was transcribed using voice recognition technology. Minor inaccuracies may be present. Time Spent with Patient Time attestation: Total time spent providing and/or coordinating discharge services: Time spent: Greater than 30 minutes Exam Vital Signs Temp Pulse Resp BP Pulse Ox O2 Del Method O2 Flow Rate 97.4 F 80 18 123/31 L 95 Room Air 1 08/14/25 12:00 08/14/25 12:00 08/14/25 12:00 08/14/25 12:00 08/14/25 12:00 08/14/25 04:00 08/12/25 16:00 Narrative Exam General: Patient alert, no acute distress, reports improvement in overall status. Cardiac: Regular rate and rhythm, normal S1, S2, no murmurs. Pulmonary: Clear lungs, wheezing on auscultation. Abdomen: Mild hernia noted, distended, positive bowel sounds, no guarding or rebound tenderness. Extremities: Bilateral 1+ pitting edema, pulses 2+ bilaterally. Skin: Warm, dry, no rashes or ecchymoses. Discharge Plan Plan Patient Disposition: HOME (Self Care) Patient condition on transfer: Stable Care Plan Goals: * Follow-up with PCP within 1-2 weeks of discharge. * Recommenced follow-up with nephrology (kidney doctor) for suspected chronic kidney disease. * He will need referral to tertiary center for GI surgery for proximal gastric body stricture. Please discuss with PCP. * Recommended repeat CBC lab in 1 week to follow-up with anemia. Please use provided lab order. Please forward the results to your PCP for review. * Continue using PROTONIX 40 mg daily to prevent gastritis and esophagitis and GI bleed. * Continues on MIRALAX as needed to maintain regular bowel and soft stool. * Continue using FLUCONAZOLE 400 mg daily, please discuss duration of therapy with your PCP. * Continue taking medications as prescribed below. * Return to Emergency Room if symptoms persist, worsen, or new symptoms develop. Prescriptions/Referrals Prescriptions/Med Rec: New pantoprazole [Protonix] 40 mg tablet,delayed release (DR/EC) 40 mg PO QDAY Qty: 30 0RF polyethylene glycol 3350 [Miralax] 17 gram/dose powder 4 g PO QDAY Qty: 238 0RF fluconazole 200 mg tablet 400 mg PO QDAY 30 Days Qty: 60 0RF Continued trazodone 50 mg Tablet 150 mg PO HS venlafaxine 75 mg Tablet 75 mg PO QDAY hydrocodone-acetaminophen 10-325 mg Tablet 10 tab PO Q6HR PRN (Reason: Pain) triamterene 50 mg Capsule 75 mg PO QDAY ferrous sulfate 325 mg (65 mg iron) Tablet,Delayed Release (Dr/Ec) 325 mg PO QDAY 30 Days Qty: 30 3RF Referrals: No Primary/Family,Physician [Primary Care Provider] Outpatient Orders (i.e. Home Health, Labs, Imaging): CBC (Routine) Timeframe: 1 Week Location: Determined by Patient Ordered By: Lesley Hightower Patient/Caregiver Discharge Instructions Print Language: Iranian Stand Alone Forms: Arline Award Info., Patient Portal Info Letter Discharge Order Discharge Orders: Discharge (Routine); Ordered 08/14/25 Ordered By: Juno Dodd Quality Discharge Quality Measures VTE prophylaxis
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
== END 2025-08-14 14:25 | disposition home or self-care (01) | DRG 380 ==
LOC: SERX 18:34 → SERHOLD 22:31 → S2SX 08-10 08:32 → S3SX 08-13 15:48
PROVIDERS: Nurse Practitioner Family; Specialist; Student in an Organized Health Care Education/Training Program; Admitting Provider Internal Medicine; Emergency Provider Family Medicine; Visit Provider Internal Medicine
PROC: (CPT 43239; principal; 2025-08-10 17:45)
DX: K22.11 Ulcer of esophagus with bleeding (principal); J69.0 Pneumonitis due to inhalation of food and vomit; F33.9 Major depressive disorder, recurrent, unspecified; N17.9 Acute kidney failure, unspecified; K31.1 Adult hypertrophic pyloric stenosis; G89.21 Chronic pain due to trauma; N40.0 Benign prostatic hyperplasia without lower urinary tract symptoms; D50.0 Iron deficiency anemia secondary to blood loss (chronic); K21.9 Gastro-esophageal reflux disease without esophagitis; I10 Essential (primary) hypertension; G47.00 Insomnia, unspecified; R91.8 Other nonspecific abnormal finding of lung field; K22.89 Other specified disease of esophagus; K42.9 Umbilical hernia without obstruction or gangrene; I11.0 Hypertensive heart disease with heart failure; Z66 Do not resuscitate; Z79.899 Other long term (current) drug therapy; Z98.84 Bariatric surgery status; K29.71 Gastritis, unspecified, with bleeding; M54.9 Dorsalgia, unspecified; R30.0 Dysuria; I95.9 Hypotension, unspecified
CPT/HCPCS: 36415; 36430; 71045; 71250; 74018; 74176; 74240; 76770; 80053; 80069; 81001; 82270; 82607; 82746; 83540; 83550; 83605; 83735; 84100; 85014; 85018; 85025; 85610; 86331; 86635; 86850; 86900; 86901; 86923; 87040; 87086; 87205; 87635; 92610; 93005; 93225; 93306; 99284; A4649; J1171; J1200; J1450; J1938; J1956; J2250; J2470; J3010; J3475; J3480; J3490; J7042; J7050; J7120; J7999; P9016; Q9963; A9270; J1836